=== PATIENT | male | born 1940 | race Caucasian/White ===

== ENCOUNTER 2016-08-22 10:55 | Emergency (ER) | payer MEDICARE, BC ==
--- NOTE | 2016-08-22 12:41 | US ---
EXAMINATION TYPE: US venous doppler duplex LE LT DATE OF EXAM: 08/22/2016 12:23 PM COMPARISON: NONE CLINICAL HISTORY: Pain. SIDE PERFORMED: Left TECHNIQUE: The lower extremity deep venous system is examined utilizing real time linear array sonog pat with graded compression, doppler sonography and color-flow sonography. VESSELS IMAGED: External Iliac Vein (EIV) Common Femoral Vein Deep Femoral Vein Greater Saphenous Vein * Femoral Vein Popliteal Vein Small Saphenous Vein * Proximal Calf Veins-not seen due to swelling (* superficial vessels) Patient of large body habitus with moderate swelling, somewhat technically difficult. Left Leg: Appears negative for DVT IMPRESSION: No evidence of DVT left lower extremity.
[2016-08-22 12:48] VITALS: BP 176/81; PULSE 90; RESP 16
--- NOTE | 2016-08-22 12:48 | ED ---
Extremity Problem HPI - General Chief complaint: Extremity Problem,Nontraumatic Stated complaint: Leg swelling Time Seen by Provider: 08/22/16 11:48 Source: patient, RN notes reviewed Mode of arrival: ambulatory Limitations: no limitations - History of Present Illness Initial comments: 75-year-old male presents emergency Department chief complaint left leg pain, swelling. Patient states she's had some discomfort last few days. Patient states is more swelling. Patient denies any chest pain or shortness breath. Patient has a history DVT. Patient denies any discoloration or any coolness to his foot. Patient states that he's had multiple surgeries on his leg including hip, knee and prior vascular surgery to his foot. Patient states this was performed by Dr. Leblanc. Patient denies any other complaints. No recent long distance traveling. - Related Data Home Medications Medication Instructions Recorded Confirmed Lisinopril-Hctz 20-25 mg 1 tab PO DAILY 10/08/13 08/22/16 [Zestoretic 20-25] Omeprazole [PriLOSEC] 20 tab PO BID 10/08/13 08/22/16 Naproxen [Naprosyn] 500 mg PO Q12HR 08/04/14 08/22/16 Ascorbic Acid [Vitamin C] 500 mg PO DAILY 08/05/14 08/22/16 Cholecalciferol [Vitamin D3] 400 unit PO DAILY 08/05/14 08/22/16 Fish Oil/Dha/Epa [Fish Oil 1,200 1 cap PO DAILY 08/05/14 08/22/16 mg Fish Oil] Multivitamin [Men's Multi-Vitamin] 1 tab PO DAILY 08/05/14 08/22/16 Atorvastatin [Lipitor] 40 mg PO HS 08/22/16 08/22/16 Cyanocobalamin [Vitamin B-12] 500 mcg PO DAILY 08/22/16 08/22/16 Allergies Allergy/AdvReac Type Severity Reaction Status Date / Time No Known Allergies Allergy Verified 08/22/16 11:36 Review of Systems ROS Statement: Those systems with pertinent positive or pertinent negative responses have been documented in the HPI. ROS Other: All systems not noted in ROS Statement are negative. Past Medical History Past Medical History: GERD/Reflux, Hypertension, Osteoarthritis (OA), Syncope Additional Past Medical History / Comment(s): glaucoma. He has a difficulty with his right hip. He has had evaluation versus [place] with an unclear etiology of the weakness that he suffers from at the right hip. It may be related to his prior right. total hip breath or plastic surgery though. History of Any Multi-Drug Resistant Organisms: None Reported Past Surgical History: Hernia Repair, Orthopedic Surgery Additional Past Surgical History / Comment(s): hayley knee replacement x4, rt hip replacement, left foot surgery-plantar wart, bilateral cataract, rt cardiac cath 08/10/14 Past Anesthesia/Blood Transfusion Reactions: No Reported Reaction Past Psychological History: No Psychological Hx Reported Additional Psychological History / Comment(s): Patient is and lives in the family home with his . Was a tobacco smoker only in his 20s. Denies a history of recreational drug use or significant alcohol use. He was in the , [employer], stationed in [place] after the conflict. No international travel since then. No animals in the home.. Smoking Status: Former smoker Past Alcohol Use History: None Reported Past Drug Use History: None Reported - Past Family History Mother Family Medical History: Cancer Additional Family Medical History / Comment(s): lung bowel and breast cancer General Exam Limitations: no limitations General appearance: alert, in no apparent distress Head exam: Present: atraumatic, normocephalic, normal inspection Neck exam: Present: normal inspection. Absent: tenderness, meningismus, lymphadenopathy Respiratory exam: Present: normal lung sounds bilaterally. Absent: respiratory distress, wheezes, rales, rhonchi, stridor Cardiovascular Exam: Present: regular rate, normal rhythm, normal heart sounds. Absent: systolic murmur, diastolic murmur, rubs, gallop, clicks Extremities exam: Present: other (Left leg there is some swelling noted mild calf tenderness. Pedal pulses equal bilaterally.) Skin exam: Present: warm, dry, intact, normal color. Absent: rash Course Vital Signs 08/22/16 08/22/16 10:58 12:32 Temperature 97.8 F Pulse Rate 107 H 90 Respiratory 18 16 Rate Blood Pressure 209/102 176/81 O2 Sat by Pulse 96 94 L Oximetry Medical Decision Making - Medical Decision Making 35-year-old male presented for left leg swelling and pain. There is no acute DVT. Patient we discharged advised to wear compression stockings. Elevate. Disposition Clinical Impression: Swelling of left lower extremity Disposition: HOME SELF-CARE Condition: Stable Instructions: Leg Edema (ED) Additional Instructions: Please return to the Emergency Department if symptoms worsen or any other concerns. Time of Disposition: 12:48
--- NOTE | 2016-08-22 13:11 | XR ---
EXAMINATION TYPE: XR chest 2V DATE OF EXAM: 08/22/2016 1:05 PM COMPARISON: July 31, 2010 HISTORY: Shortness of breath TECHNIQUE: Frontal and lateral views of the chest are obtained. FINDINGS: Scattered senescent parenchymal changes noted. Hyperinflation compatible with COPD. No evidence for infiltrate. No evidence for atelectasis. Heart size is stable. Mediastinal structures are stable and grossly unremarkable. No evidence for hilar prominence. Degenerative changes dorsal spine. IMPRESSION: 1. No evidence for acute pulmonary disease.
[2016-08-22 13:22] VITALS: TEMP 97
== END 2016-08-22 13:22 | disposition home or self-care (01) ==
LOC: EC 10:55
DX: M79.89 Other specified soft tissue disorders (principal); M79.605 Pain in left leg; K21.9 Gastro-esophageal reflux disease without esophagitis; I10 Essential (primary) hypertension; M19.90 Unspecified osteoarthritis, unspecified site; Z87.891 Personal history of nicotine dependence; Z79.1 Long term (current) use of non-steroidal anti-inflammatories (NSAID); Z79.899 Other long term (current) drug therapy
CPT/HCPCS: 71020; 99284

== ENCOUNTER → 2016-12-12 | Outpatient (CLI) | payer MEDICARE, BC | END | disposition home or self-care (01) | LOC: RADMRIMAIN 12:46 | PROVIDERS: ATTEND Physical Medicine & Rehabilitation | DX: Z53.9 Procedure and treatment not carried out, unspecified reason (principal) ==

== ENCOUNTER 2017-10-15 09:51 | Day surgery (SDC) | payer MEDICARE, BC ==
[2017-10-09 08:17] VITALS: BMI 39.5
[~2017-10-15 09:51] MED LIST: ALPRAZolam 0.25 MG TAB PO PRN; ALPRAZolam 0.5 MG TAB PO PRN; ASPIRIN 325 MG TAB PO STA; ATORVASTATIN 80 MG TAB PO STA; NITROGLYCERIN SL TABS 0.4 MG TAB SUBLINGUAL PRN; SODIUM CHLORIDE 0.9% 1,000 ML in EMPTY BAG 1 BAG IV ONE
[2017-10-15] MEDS ORDERED: fentaNYL (PF) 50 MCG/ML 2 ML AMP ONE (10:37)
[2017-10-15] MEDS ORDERED: MIDAZOLAM 2 MG/2 ML VIAL ONE (10:37)
[2017-10-15] MEDS ORDERED: MIDAZOLAM 2 MG/2 ML VIAL IV ONE (10:48)
[2017-10-15] MEDS ORDERED: fentaNYL (PF) 50 MCG/ML 2 ML AMP IV ONE (10:48)
[2017-10-15] MEDS ORDERED: LIDOCAINE 2% SYG (PF) 100 MG/5 ML MISCELLANE ONE ×2 (10:52→11:02)
[2017-10-15] MEDS ORDERED: SODIUM CHLORIDE 0.9% 1,000 ML IV ONE (10:53)
[2017-10-15 11:16] LABS: O2 Sat Blood Gas 65.3 %
[2017-10-15 11:23] LABS: O2 Sat Blood Gas 91.8 %
[2017-10-15] MEDS ORDERED: RX INFO: IV CONTRAST WAS GIVEN 1 EACH MISC MISCELLANE PRN (11:40)
[2017-10-15] MEDS ORDERED: SODIUM CHLORIDE 0.9% 1,000 ML IV SCH (11:45)
--- NOTE | 2017-10-15 11:49 | P.PCN ---
Date of Procedure: 10/15/17 Preoperative Diagnosis: Shortness of breath, hypertension and hypercholesterolemia Postoperative Diagnosis: Calcified coronary arteries without any significant obstructive disease. Normal LV function. Mildly elevated end-diastolic pressures size to of diastolic dysfunction Description of Procedure: HISTORY: This is a 76-year-old gentleman with history of hypertension and hypercholesteremia who has been experiencing exertional shortness of breath. His a stress test in the past showed normal perfusion. He was seen by marshmallow maker recently and felt that the symptoms of shortness of breath are not related to pulmonary issues and he was advised to have a cardiac catheterization. Patient fully understood the risks and benefits of the procedure. CONSENT:I have discussed the risks, benefits and alternative therapies for the above-mentioned procedure and for both sedation/analgesia as well as necessary blood product administration, if indicated, as they pertain to this patient. The patient has indicated understanding and acceptance of the risks and procedures discussed. PROCEDURE: Patient was brought to the lab in a fasting state. Patient was given IV sedation. Left heart catheterization: The right groin is infiltrated with lidocaine and right femoral artery was entered using Seldinger technique. A 6-Taiwanese catheter was left in place and selective coronary arteriography and left ventriculography was performed. Patient tolerated the procedure well. Femoral angiogram was performed and Manual compression was applied for hemostasis. Right heart catheterization: This is performed from the right femoral vein. The femoral vein was entered using Seldinger technique and a 8-Taiwanese sheath was left in place. A balloon-tip [place] catheter was used for right heart catheterization. Patient tolerated the procedure well. Manual compression was applied for hemostasi No immediate complications were noted and patient was transferred to [facility] in a stable condition Conscious Sedation: Versed 1mg Fentanyl 50g Duration 40minutes HEMODYNAMICS: Left heart catheterization: The aortic pressure is about 130/70. Left ankle end-diastolic pressure is about 12-16. There was no gradient across the aortic valve. Right heart catheterization: Right atrial pressure was about 6-7. Right ventricular pressure is about 35-40/8-12. Pulmonary artery pressure is about 40/12-16. The cardiac output by thermodilution method is 5.37 and by Beny method is 6.18. The oxygen saturation. The right atrium is 67. Pulmonary artery saturation 65 and femoral artery saturation is 91.8. SELECTIVE CORONARY ARTERIOGRAPHY: LEFT MAIN: Normal length mild ostial tapering THE LEFT ANTERIOR DESCENDING CORONARY ARTERY: . This is a good caliber vessel giving rise to good-sized first diagonal branch. There is calcification noted in the LAD without any significant focal occlusive disease. THE LEFT CIRCUMFLEX AND IS CORONARY ARTERY: This is a moderate caliber vessel giving rise to good-sized OM branch. The circumflex coronary artery and branches are free of occlusive disease. THE RIGHT CORONARY ARTERY:This is a dominant vessel giving rise to good-sized PDA and PLV. The right coronary artery and branches are free of occlusive disease LEFT VENTRICULOGRAPHY:This was performed 30 right anterior oblique projection. This revealed normal-sized cardiac silhouette with good systolic function FINAL IMPRESSION: Calcified aorta and coronary vessels without any obstructive coronary artery disease of significance. Mildly elevated end-diastolic pressures with preserved LV function. PLAN: Maximum medical therapy and this factor modification PROGNOSIS: Fair
[2017-10-15 14:22] VITALS: RESP 16
[2017-10-15 20:04] VITALS: BP 142/66; PULSE 74; TEMP 97.8
== END 2017-10-15 21:00 | disposition home or self-care (01) ==
LOC: CATHCVL 09:51 → 3OBS 11:36 → CATHCVL 21:00
PROVIDERS: ATTEND Internal Medicine Cardiovascular Disease
DX: I25.10 Atherosclerotic heart disease of native coronary artery without angina pectoris (principal); I10 Essential (primary) hypertension; E78.00 Pure hypercholesterolemia, unspecified; I70.0 Atherosclerosis of aorta; I77.89 Other specified disorders of arteries and arterioles; Z79.1 Long term (current) use of non-steroidal anti-inflammatories (NSAID); Z79.82 Long term (current) use of aspirin; Z79.899 Other long term (current) drug therapy; Z87.891 Personal history of nicotine dependence
CPT/HCPCS: 93460; 85018; 82810; C1894 ×2; C1769; J2250; J2001; J3010

== ENCOUNTER 2018-11-21 14:38 | Emergency (ER) | payer MEDICARE, BC ==
[2018-11-21 14:43] VITALS: TEMP 97.8
[2018-11-21] MEDS ORDERED: KETOROLAC 30 MG/ML 1 ML VIAL IM STA (15:20)
--- NOTE | 2018-11-21 15:47 | XR ---
EXAMINATION TYPE: XR hand complete RT DATE OF EXAM: 11/21/2018 CLINICAL HISTORY: Pain after fall injury today. TECHNIQUE: Frontal, lateral and oblique images of the right hand are obtained. COMPARISON: None. FINDINGS: Demineralization is present. There is no acute fracture/dislocation evident in the right jeff nd. Advanced degenerative changes throughout the right hand are present including involvement in the fingers most prominent at the second and third MCP joints. Advanced degenerative change base of first metacarpal with bony formation is present along with advanced narrowing and spurring at first metaca rpal phalangeal joint. Mild diffuse subcutaneous edema is present. IMPRESSION: There is no acute fracture or dislocation in the right hand.
--- NOTE | 2018-11-21 15:49 | XR ---
EXAMINATION TYPE: XR chest 2V DATE OF EXAM: 11/21/2018 COMPARISON: 08/22/2016 HISTORY: Cough and chest pain TECHNIQUE: Frontal and lateral views of the chest are obtained. FINDINGS: There is no focal air space opacity, pleural effusion, or pneumothorax seen. Chronic mild interstitial prominence. The cardiac silhouette size is enlarged as noted on the prior. The osseou s structures are intact. There is a partial intrathoracic stomach seen. Minimal degenerative changes of the spine are noted. IMPRESSION: No acute cardiopulmonary process. Partial intrathoracic stomach and redemonstration of a n enlarged cardiomediastinal silhouette.
--- NOTE | 2018-11-21 16:06 | ED ---
Fall HPI - General Chief Complaint: Fall Stated Complaint: Fall, side pain Time Seen by Provider: 11/21/18 15:13 Source: patient, family Mode of arrival: ambulatory - History of Present Illness Initial Comments: Patient is a 78-year-old male presents emergency Department after fall. Patient reports he was mowing the lawn when he tripped and fell on the right side of his body 2 hours ago. Patient reports pain along the thoracic mid axillary line that is exacerbated on full inspiration. Patient reports an abrasion in the same region. Patient denies any head trauma. Patient reports the pain is alleviated at rest. Patient reports pain in his right second and third MCP joints. Patient reports mild erythema and swelling in the region as well. Patient is not on blood thinners. Patient denies chest pain, chest tightness, shortness of breath, headache,, dizziness, lightheadedness, blurry vision, gait instability, nausea vomiting. - Related Data Home Medications Medication Instructions Recorded Confirmed Omeprazole [PriLOSEC] 20 tab PO BID 10/08/13 10/09/17 Ascorbic Acid [Vitamin C] 500 mg PO DAILY 08/05/14 10/09/17 Cholecalciferol [Vitamin D3] 400 unit PO DAILY 08/05/14 10/09/17 Multivitamin [Men's Multi-Vitamin] 1 tab PO DAILY 08/05/14 10/09/17 Atorvastatin [Lipitor] 40 mg PO HS 08/22/16 10/09/17 Cyanocobalamin [Vitamin B-12] 500 mcg PO DAILY 08/22/16 10/09/17 Aspirin 325 mg PO DAILY 10/09/17 10/09/17 Atenolol/Chlorthalidone 1 each PO DAILY 10/09/17 10/09/17 [Atenolol-Chlorthalidone 50-25] traMADol HCL [Ultram] 100 mg PO DAILY PRN 10/09/17 10/09/17 Allergies Allergy/AdvReac Type Severity Reaction Status Date / Time No Known Allergies Allergy Verified 11/21/18 14:40 Review of Systems ROS Statement: Those systems with pertinent positive or pertinent negative responses have been documented in the HPI. ROS Other: All systems not noted in ROS Statement are negative. Past Medical History Past Medical History: Cancer, GERD/Reflux, Hyperlipidemia, Osteoarthritis (OA), Prostate Disorder, Sleep Apnea/CPAP/BIPAP, Syncope Additional Past Medical History / Comment(s): see Dr Burns H&P, "episode 3 yrs ago passed out and vitals bottomed out", no cpap used, skin cancer on face, occ swelling of lower legs History of Any Multi-Drug Resistant Organisms: None Reported Past Surgical History: Heart Catheterization, Hernia Repair, Joint Replacement, Orthopedic Surgery Additional Past Surgical History / Comment(s): 4 hayley knee replacement-2 each knee, rt hip replacement, left foot surgery-plantar wart, bilateral cataract, left foot surgery for infection, stent left carotid artery Past Anesthesia/Blood Transfusion Reactions: No Reported Reaction Past Psychological History: No Psychological Hx Reported Smoking Status: Former smoker Past Alcohol Use History: None Reported Past Drug Use History: None Reported - Past Family History Mother Family Medical History: Cancer Additional Family Medical History / Comment(s): lung, bowel cancer General Exam - General Exam Comments Initial Comments: General: Well-developed well-nourished distress HEENT: Normocephalic/atraumatic, PERLL, pharynx erythema, swallowing well, EAC no erythema, no exudates, TM clear, no cervical lymph nodes Neck: Supple, nontender, trachea midline Chest/Lungs: Normal respirations, no signs of respiratory distress clear to auscultation bilaterally no wheezes, rales, rhonchi Cardiac: Regular rate and rhythm, normal S1-S2, no murmurs rubs or gallops Abdomen/GI: Soft nontender, bowel sounds equal or quadrant x4, no guarding, no rebound no CVA tenderness Musculoskeletal: Tenderness along the right thoracic midaxillary line, abrasion measuring approximately 4 cm in the same region, no vertebral paravertebral tenderness, small abrasion near the right trapezius, +2 dorsalis pedis and posterior tibialis bilaterally, +2 ulnar and radial pulses Skin: Warmth, no rashes or lesions, no cyanosis or diaphoresis Neurologic: AAO x 3, CN 2-12 intact, Psychiatric: Mood and affect normal, judgment normal Limitations: no limitations Course Vital Signs 11/21/18 14:40 Temperature 97.8 F Pulse Rate 77 Respiratory 16 Rate Blood Pressure 157/82 O2 Sat by Pulse 92 L Oximetry Medical Decision Making - Medical Decision Making Patient is 78-year-old male presenting to emergency Department after fall. Chest x-ray is negative for a pneumothorax but is positive for an enlarge cardiac silhouette. Patient has a chronic low oxygen saturation. X-ray of the right hand is negative for acute fracture or dislocation. This when I suspect the patient to have suffered a contusion to his chest wall and sprain of his right second and third MCP joints. Patient advised to apply cold compress and region of tenderness to minimize swelling. Patient vised to follow-up with primary care. Patient advised to alternate between Tylenol and ibuprofen for pain control. Strict return parameters were thoroughly discussed with patient was understanding and agreeable. Case discussed with physician. Disposition Clinical Impression: Fall Disposition: HOME SELF-CARE Condition: Stable Instructions (If sedation given, give patient instructions): Fall Prevention for Older Adults (ED) Additional Instructions: Please follow with primary care. Please apply cold compress an region and swelling to minimize pain. Please return to emergency department if symptoms worsen. Is patient prescribed a controlled substance at d/c from ED?: No Referrals: [facility],Clinic [Primary Care Provider] - 1-2 days Time of Disposition: 16:34
[2018-11-21 16:59] VITALS: BP 128/65; PULSE 65; RESP 18
== END 2018-11-21 16:58 | disposition home or self-care (01) ==
LOC: EC 14:38
DX: S20.411A Abrasion of right back wall of thorax, initial encounter (principal); S10.91XA Abrasion of unspecified part of neck, initial encounter; K21.9 Gastro-esophageal reflux disease without esophagitis; E78.5 Hyperlipidemia, unspecified; M19.90 Unspecified osteoarthritis, unspecified site; Z85.828 Personal history of other malignant neoplasm of skin; Z87.891 Personal history of nicotine dependence; Z79.82 Long term (current) use of aspirin; Z79.899 Other long term (current) drug therapy; Z96.653 Presence of artificial knee joint, bilateral; Z96.643 Presence of artificial hip joint, bilateral; Z95.818 Presence of other cardiac implants and grafts; W01.0XXA Fall on same level from slipping, tripping and stumbling without subsequent striking against object, initial encounter
CPT/HCPCS: 73130; 71046; 99283; 96372; J1885

== ENCOUNTER 2020-08-15 21:37 | Inpatient (IN) | payer MEDICARE, BC ==
[2020-08-15] MEDS ORDERED: methylPREDNISolone SOD SUCCI 125 MG/2 ML VIAL IV STA (21:57)
[2020-08-15 22:26] LABS: Basophils # (A) 0.1 k/uL (0-0.2); Basophils % (A) 1 %; Eosinophils % (A) 0 %; HGB 17.3 gm/dL (13.0-17.5); Lymphocytes # (A) 0.5 k/uL (1.0-4.8); Lymphocytes % (A) 4 %; MCH 31.7 pg (25.0-35.0); MCHC 34.7 g/dL (31.0-37.0); MCV 91.4 fL (80.0-100.0); Mean Platelet Volume 7.6; Monocytes # (A) 0.5 k/uL (0-1.0); Monocytes % (A) 4 %; Neutrophils % (A) 91 %; Platelet Count 170 k/uL (150-450); RBC 5.47 m/uL (4.30-5.90); RDW 12.6 % (11.5-15.5); WBC 12.1 k/uL (3.8-10.6)
--- NOTE | 2020-08-15 22:28 | XR ---
EXAMINATION TYPE: XR chest 1V portable DATE OF EXAM: 08/15/2020 COMPARISON: 11/21/2018 HISTORY: Short of breath. TECHNIQUE: Single view FINDINGS: There is pulmonary interstitial and airspace edema. Heart is enlarged. I see no definite pl eural effusion. There are chest leads. IMPRESSION: Pulmonary edema that could relate to developing RDS or heart failure. This appears new co mpared to old exam. Hiatal hernia noted.
[2020-08-15] MEDS ORDERED: DILTIAZEM DRIP BOLUS FROM BAG 1 MG SOLN IV ONE (22:39)
[2020-08-15 22:41] LABS: Partial Thromboplastin Time 23.9 sec (22.0-30.0); Prothrombin Time 10.3 sec (9.0-12.0)
[2020-08-15 22:43] LABS: ALT 27 U/L (4-49); AST 87 U/L (17-59); African American GFR (CKD) >90 (>60 ml/min/1.73 sqM); Albumin 2.2 g/dL (3.5-5.0); Alkaline Phosphatase 73 U/L (38-126); Anion Gap 7 mmol/L; Blood Urea Nitrogen 13 mg/dL (9-20); Carbon Dioxide 19 mmol/L (22-30); Chloride 107 mmol/L (98-107); Glucose 145 mg/dL (74-99); LDH 1458 U/L (313-618); Magnesium 1.4 mg/dL (1.6-2.3); Non-African American GFR(CKD) >90 (>60 ml/min/1.73 sqM); Potassium 3.3 mmol/L (3.5-5.1); Sodium 133 mmol/L (137-145); Total Bilirubin 0.7 mg/dL (0.2-1.3); Total Protein 4.6 g/dL (6.3-8.2)
[2020-08-15 22:52] LABS: D-Dimer 2.35 mg/L FEU (<0.60)
[2020-08-15 22:53] LABS: C Reactive Protein 17.7 mg/dL (<1.0)
--- NOTE | 2020-08-15 23:14 | ED ---
General Adult HPI - General Chief complaint: Shortness of Breath Stated complaint: Covid+ SOB Source: patient Mode of arrival: ambulatory Limitations: no limitations - History of Present Illness Initial comments: 79-year-old male with past medical history of hypertension, sleep apnea presents emergency Department with reported shortness of breath. States that he has had symptoms for the past 5 days. Patient was tested positive for Covid on the . Reports that he has become more short of breath. Today he did use his friend's nebulizer. He had no improvement in his symptoms. Denies a fevers or chills. No previous history of cardiac disease. Denies chest pain. No lower trauma swelling. Does admit to a diffuse rash on his thighs and abdomen. Denies any additional new medications or exposures outside of the breathing treatment. Denies history of underlying lung conditions. No sick contacts with similar symptoms. No history of irregular heart rhythms. No other alleviating, precipitating or modifying factors - Related Data Home Medications Medication Instructions Recorded Confirmed Omeprazole [PriLOSEC] 20 tab PO BID 10/08/13 08/15/20 Ascorbic Acid [Vitamin C] 500 mg PO DAILY 08/05/14 08/15/20 Cholecalciferol [Vitamin D3 (10 400 unit PO DAILY 08/05/14 08/15/20 Mcg = 400 Iu)] Multivitamin [Men's Multi-Vitamin] 1 tab PO DAILY 08/05/14 08/15/20 Atorvastatin [Lipitor] 40 mg PO HS 08/22/16 08/15/20 Cyanocobalamin [Vitamin B-12] 500 mcg PO DAILY 08/22/16 08/15/20 Aspirin EC [Ecotrin Low Dose] 81 mg PO DAILY 08/15/20 08/15/20 Atenolol [Tenormin] 100 mg PO DAILY 08/15/20 08/15/20 Dorzolamide-Timol 2.23%/0.68% 1 drop BOTH EYES BID 08/15/20 08/15/20 [Cosopt] Naproxen 500 mg PO DAILY PRN 08/15/20 08/15/20 [place]-3 Fatty Acids/Fish Oil [Fish 1 cap PO DAILY 08/15/20 08/15/20 Oil 1,000 mg Softgel] Vitamin E 400 unit PO DAILY 08/15/20 08/15/20 Zinc 50 mg PO DAILY 08/15/20 08/15/20 Allergies Allergy/AdvReac Type Severity Reaction Status Date / Time No Known Allergies Allergy Verified 08/15/20 23:17 Review of Systems ROS Statement: Those systems with pertinent positive or pertinent negative responses have been documented in the HPI. ROS Other: All systems not noted in ROS Statement are negative. Past Medical History Past Medical History: Cancer, GERD/Reflux, Hyperlipidemia, Osteoarthritis (OA), Prostate Disorder, Sleep Apnea/CPAP/BIPAP, Syncope Additional Past Medical History / Comment(s): see Dr Burns H&P, "episode 3 yrs ago passed out and vitals bottomed out", no cpap used, skin cancer on face, occ swelling of lower legs History of Any Multi-Drug Resistant Organisms: None Reported Past Surgical History: Heart Catheterization, Hernia Repair, Joint Replacement, Orthopedic Surgery Additional Past Surgical History / Comment(s): 4 hayley knee replacement-2 each knee, rt hip replacement, left foot surgery-plantar wart, bilateral cataract, left foot surgery for infection, stent left carotid artery Past Anesthesia/Blood Transfusion Reactions: No Reported Reaction Past Psychological History: No Psychological Hx Reported Smoking Status: Former smoker Past Alcohol Use History: None Reported Past Drug Use History: None Reported - Past Family History Mother Family Medical History: Cancer Additional Family Medical History / Comment(s): lung, bowel cancer General Exam Limitations: no limitations Course Vital Signs 08/15/20 08/15/20 08/15/20 21:39 21:42 22:11 Temperature 97.9 F Pulse Rate 138 H 179 H Respiratory 25 H 18 42 H Rate Blood Pressure 114/79 130/91 O2 Sat by Pulse 74 L 95 Oximetry 08/15/20 08/15/20 08/16/20 22:53 23:28 00:03 Temperature Pulse Rate 172 H 172 H 137 H Respiratory 18 18 24 Rate Blood Pressure 106/87 125/85 128/69 O2 Sat by Pulse 96 96 94 L Oximetry EKG Findings - EKG Comments: EKG Findings:: EKG at 0 demonstrates A. fib with a rate of 169. QRS 80. QTC of 479. T-wave was inverted T-wave in lead 3. No acute ST segment elevations. EKG repeated at 2234 demonstrates ventricular rate of 151. QRS 86. QTC of 437. A. fib rhythm without acute ST segment elevations Medical Decision Making - Medical Decision Making Upon arrival patient is probably placed in trauma bay 1. He does have a heart rate of 180. Pulse ox 74%. Due to his significant work of breathing he is placed on BiPAP. 12-lead EKG is performed which demonstrates concern for A. fib. Laboratory studies were conducted. D-dimer 2.3. Lactic acid 6.3. Calcium 6.2. Patient started on gentle fluid hydration. LDH is 1458. Troponin 0.051. Patient is sent over for a CT of his chest which fails to demonstrate PE. Chest x-ray demonstrates diffuse pulmonary infiltrates. Magnesium is replaced. Patient started on a Cardizem drip with improvement in his heart rate. Spoke with the patient and recommended admission. Discussed the case wit h Dr. Khalil who agreed to admit the patient. I will consult cardiology and pulmonology. Patient is started on a heparin drip as he has no contraindications. Patient remained in stable condition awaiting a bed on the floor - Lab Data Result diagrams: 08/15/20 22:16 08/15/20 22:16 Lab Results 08/15/20 08/15/20 08/15/20 Range/Units 22:16 22:16 22:16 WBC 12.1 H (3.8-10.6) k/uL RBC 5.47 (4.30-5.90) m/uL Hgb 17.3 (13.0-17.5) gm/dL Hct 50.0 (39.0-53.0) % MCV 91.4 (80.0-100.0) fL MCH 31.7 (25.0-35.0) pg MCHC 34.7 (31.0-37.0) g/dL RDW 12.6 (11.5-15.5) % Plt Count 170 (150-450) k/uL MPV 7.6 Neutrophils % 91 % Lymphocytes % 4 % Monocytes % 4 % Eosinophils % 0 % Basophils % 1 % Neutrophils # 11.0 H (1.3-7.7) k/uL Lymphocytes # 0.5 L (1.0-4.8) k/uL Monocytes # 0.5 (0-1.0) k/uL Eosinophils # 0.0 (0-0.7) k/uL Basophils # 0.1 (0-0.2) k/uL PT 10.3 (9.0-12.0) sec INR 1.0 (<1.2) APTT 23.9 (22.0-30.0) sec D-Dimer 2.35 H (<0.60) mg/L FEU Sodium 133 L (137-145) mmol/L Potassium 3.3 L (3.5-5.1) mmol/L Chloride 107 (98-107) mmol/L Carbon Dioxide 19 L (22-30) mmol/L Anion Gap 7 mmol/L BUN 13 (9-20) mg/dL Creatinine 0.68 (0.66-1.25) mg/dL Est GFR (CKD-EPI)AfAm >90 (>60 ml/min/1.73 sqM) Est GFR (CKD-EPI)NonAf >90 (>60 ml/min/1.73 sqM) Glucose 145 H (74-99) mg/dL Lactic Ac Sepsis Rflx Plasma Lactic Acid Darwin (0.7-2.0) mmol/L Calcium 6.2 L* (8.4-10.2) mg/dL Magnesium 1.4 L (1.6-2.3) mg/dL Total Bilirubin 0.7 (0.2-1.3) mg/dL AST 87 H (17-59) U/L ALT 27 (4-49) U/L Alkaline Phosphatase 73 (38-126) U/L Lactate Dehydrogenase 1458 H (313-618) U/L Troponin I (0.000-0.034) ng/mL C-Reactive Protein 17.7 H (<1.0) mg/dL NT-Pro-B Natriuret Pep pg/mL Total Protein 4.6 L (6.3-8.2) g/dL Albumin 2.2 L (3.5-5.0) g/dL 08/15/20 08/15/20 08/15/20 Range/Units 22:16 22:16 22:16 WBC (3.8-10.6) k/uL RBC (4.30-5.90) m/uL Hgb (13.0-17.5) gm/dL Hct (39.0-53.0) % MCV (80.0-100.0) fL MCH (25.0-35.0) pg MCHC (31.0-37.0) g/dL RDW (11.5-15.5) % Plt Count (150-450) k/uL MPV Neutrophils % % Lymphocytes % % Monocytes % % Eosinophils % % Basophils % % Neutrophils # (1.3-7.7) k/uL Lymphocytes # (1.0-4.8) k/uL Monocytes # (0-1.0) k/uL Eosinophils # (0-0.7) k/uL Basophils # (0-0.2) k/uL PT (9.0-12.0) sec INR (<1.2) APTT (22.0-30.0) sec D-Dimer (<0.60) mg/L FEU Sodium (137-145) mmol/L Potassium (3.5-5.1) mmol/L Chloride (98-107) mmol/L Carbon Dioxide (22-30) mmol/L Anion Gap mmol/L BUN (9-20) mg/dL Creatinine (0.66-1.25) mg/dL Est GFR (CKD-EPI)AfAm (>60 ml/min/1.73 sqM) Est GFR (CKD-EPI)NonAf (>60 ml/min/1.73 sqM) Glucose (74-99) mg/dL Lactic Ac Sepsis Rflx Plasma Lactic Acid Darwin 6.3 H* (0.7-2.0) mmol/L Calcium (8.4-10.2) mg/dL Magnesium (1.6-2.3) mg/dL Total Bilirubin (0.2-1.3) mg/dL AST (17-59) U/L ALT (4-49) U/L Alkaline Phosphatase (38-126) U/L Lactate Dehydrogenase (313-618) U/L Troponin I 0.051 H* (0.000-0.034) ng/mL C-Reactive Protein (<1.0) mg/dL NT-Pro-B Natriuret Pep 853 pg/mL Total Protein (6.3-8.2) g/dL Albumin (3.5-5.0) g/dL 08/15/20 Range/Units 22:41 WBC (3.8-10.6) k/uL RBC (4.30-5.90) m/uL Hgb (13.0-17.5) gm/dL Hct (39.0-53.0) % MCV (80.0-100.0) fL MCH (25.0-35.0) pg MCHC (31.0-37.0) g/dL RDW (11.5-15.5) % Plt Count (150-450) k/uL MPV Neutrophils % % Lymphocytes % % Monocytes % % Eosinophils % % Basophils % % Neutrophils # (1.3-7.7) k/uL Lymphocytes # (1.0-4.8) k/uL Monocytes # (0-1.0) k/uL Eosinophils # (0-0.7) k/uL Basophils # (0-0.2) k/uL PT (9.0-12.0) sec INR (<1.2) APTT (22.0-30.0) sec D-Dimer (<0.60) mg/L FEU Sodium (137-145) mmol/L Potassium (3.5-5.1) mmol/L Chloride (98-107) mmol/L Carbon Dioxide (22-30) mmol/L Anion Gap mmol/L BUN (9-20) mg/dL Creatinine (0.66-1.25) mg/dL Est GFR (CKD-EPI)AfAm (>60 ml/min/1.73 sqM) Est GFR (CKD-EPI)NonAf (>60 ml/min/1.73 sqM) Glucose (74-99) mg/dL Lactic Ac Sepsis Rflx Y Plasma Lactic Acid Darwin (0.7-2.0) mmol/L Calcium (8.4-10.2) mg/dL Magnesium (1.6-2.3) mg/dL Total Bilirubin (0.2-1.3) mg/dL AST (17-59) U/L ALT (4-49) U/L Alkaline Phosphatase (38-126) U/L Lactate Dehydrogenase (313-618) U/L Troponin I (0.000-0.034) ng/mL C-Reactive Protein (<1.0) mg/dL NT-Pro-B Natriuret Pep pg/mL Total Protein (6.3-8.2) g/dL Albumin (3.5-5.0) g/dL Disposition Clinical Impression: COVID-19, Hypoxia, BiPAP (biphasic positive airway pressure) dependence, Lactic acid acidosis, New onset a-fib Disposition: ADMITTED IP TO THIS HOSP Condition: Serious Is patient prescribed a controlled substance at d/c from ED?: No Decision to Admit Reason: Admit from EC Decision Date: 08/15/20 Decision Time: 23:58
[2020-08-15 23:20] LABS: Calcium 6.2 mg/dL (8.4-10.2)
[2020-08-15] MEDS: DILTIAZEM 125 MG in SODIUM CHLORIDE 0.9% 100 ML IV SCH (23:20)
[2020-08-15] MEDS: SODIUM CHLORIDE 0.9% 1,000 ML IV SCH (23:21)
--- NOTE | 2020-08-15 23:55 | CT ---
EXAMINATION TYPE: CT chest angio for PE DATE OF EXAM: 08/15/2020 COMPARISON: None HISTORY: SOB CT DLP: 620.2 mGycm Automated exposure control for dose reduction was used. CONTRAST: Performed with IV Contrast, patient injected with 90 mL of Isovue 370. Images obtained from the thoracic inlet to the diaphragm with IV contrast. There are 3-D post process ed images. There is extensive pulmonary interstitial and airspace infiltrate. There is consolidation in the post erior lung king. There is moderate hiatal hernia. Heart is slightly enlarged. There is no pericardi al effusion. There is no aortic aneurysm or dissection. I see no filling defect in the pulmonary moni jose. There is no definite mediastinal adenopathy. There are few mediastinal lymph nodes measuring le ss than 1 cm. There are no hilar masses. There is some spurring in the thoracic spine. There is no compression fracture. Sternum is intact. Th e upper abdominal soft tissues are intact. IMPRESSION: No evidence of pulmonary embolism. Extensive pulmonary infiltrates consistent with pneumonia or RDS. No pleural fluid seen to suggest he art failure.
[2020-08-15] MEDS ORDERED: ACETAMINOPHEN TAB 325 MG TAB PO PRN (23:58)
[2020-08-15] MEDS ORDERED: NALOXONE 0.4 MG/ML 1 ML VIAL IV PRN (23:58)
[2020-08-16] MEDS ORDERED: HEPARIN SODIUM 1,000 UN/ML (10ML VL) IV ONE (00:13)
[2020-08-16] MEDS ORDERED: HEPARIN SODIUM 1,000 UN/ML (10ML VL) IV PRN (00:13)
[2020-08-16] MEDS ORDERED: HEPARIN SOD,PORK IN 0.45% NACL 25,000 UNIT in 0.45% NACL 1 250ML.BAG IV SCH (00:15)
[2020-08-16] MEDS: MAGNESIUM SULFATE-D5W PMX 1 GM in DEXTROSE/WATER 1 100ML.BAG IVPB SCH ×2 (00:49→01:50)
[2020-08-16] MEDS: SODIUM CHLORIDE 0.9% 1,000 ML IV SCH ×2 (07:44→15:41)
[2020-08-16] MEDS: MULTIVITAMINS, THERA 1 EACH TAB PO SCH (08:25)
[2020-08-16] MEDS: ZINC SULFATE 220 MG CAP PO SCH (08:26)
[2020-08-16] MEDS: CHOLECALCIFEROL 10 MCG (400 IU) TABLET PO SCH (08:26)
[2020-08-16] MEDS: PANTOPRAZOLE 40 MG TABLET PO SCH ×2 (08:26→20:18)
[2020-08-16] MEDS: VITAMIN E (DL,TOCOPHERYL ACET) 400 UNIT CAP PO SCH (08:26)
[2020-08-16] MEDS: ASCORBIC ACID 500 MG TAB PO SCH (08:26)
[2020-08-16] MEDS: CYANOCOBALAMIN 500 MCG TAB PO SCH (08:26)
[2020-08-16] MEDS: DEXAMETHASONE SOD PHOSPHATE 10 MG/ML 1 ML VIAL IV SCH (08:26)
[2020-08-16] MEDS ORDERED: NON FORMULARY DRUG (Omega-3 Fatty Acids/Fish Oil [Fish Oil 1,000 Mg Softgel] 1 EACH Capsul PO SCH (09:00)
[2020-08-16] MEDS ORDERED: LORazepam 2 MG/ML INJ IV PRN (10:26)
[2020-08-16] MEDS: DILTIAZEM 125 MG in SODIUM CHLORIDE 0.9% 100 ML IV SCH (11:00)
--- NOTE | 2020-08-16 11:00 | ECHOF ---
Referral Reason:LV function, afib MEASUREMENTS -------- HEIGHT: 170.2 cm WEIGHT: 115.7 kg BP: IVSd: 1.1 cm (0.6 - 1.1) LVIDd: 3.3 cm (3.9 - 5.3) LVPWd: 1.4 cm (0.6 - 1.1) IVSs: 1.9 cm LVIDs: 1.7 cm LVPWs: 1.6 cm Ao Diam: 3.2 cm (2.0 - 3.7) AV Cusp: 1.8 cm (1.5 - 2.6) LA Diam: 2.7 cm (2.7 - 3.8) MV EXCURSION: 17.354 mm (> 18.000) MV EF SLOPE: 90 mm/s (70 - 150) EPSS: 0.7 cm RAP: 5.00 mmHg RVSP: 13.66 mmHg FINDINGS -------- Atrial fibrillation. This was a technically difficult study with suboptimal views. The left ventricular size is normal. There is mild concentric left ventricular hypertrophy. Overa ll left ventricular systolic function is normal with, an EF between 55 - 60 %. , and the LA measures 2.7cm. The right atrium was not well visualized. Lumason used The aortic valve was not well visualized. There is trace mitral regurgitation. Mild tricuspid regurgitation present. Right ventricular systolic pressure is normal at < 35 mmHg. The pulmonic valve was not well visualized. The aortic root size is normal. IVC Not well visulized. There is no pericardial effusion. CONCLUSIONS -------- 1. The left ventricular size is normal. 2. There is mild concentric left ventricular hypertrophy. 3. Overall left ventricular systolic function is normal with, an EF between 55 - 60 %. 4. There is trace mitral regurgitation. 5. Mild tricuspid regurgitation present. 6. There is no pericardial effusion. MANAGER [employer]: Ida Wallace, JULIO
--- NOTE | 2020-08-16 11:37 | P.CRDCN ---
History of Present Illness History of present illness: HISTORY OF PRESENTING ILLNESS This is a pleasant 79-year-old male past medical history significant for hypertension, dyslipidemia, non-obstructive CAD, bilateral carotid artery disease. He follows in the office with Dr. Burns. We have been asked to see in consultation for new onset atrial fibrillation . Patient presents to the emergency department with worsening shortness of breath. Was tested positive for Covid-19 on August 13, and since then has become more short of breath and his family brought him to the emergency department. Patient was found to be in atrial fibrillation with rapid ventricular response HR 130-170s, Hypoxic SpO2 74% on room air. Patient started on BiPAP, 10mg IV Cardizem bolus, IV Cardizem drip is at 10mg/hr and Heparin drip was initiated. Patient denies chest pain, palpitations, lower extremity edema, fatigue, weakness, lightheadedness, syncope. Patient denies history of Diabetes, Stroke, [place]. Patients current home cardiac medication include atorvastatin 40mg nightly, aspirin 81mg daily, atenolol 100mg daily (which he states was just increased by his physician at the [place]). He was on lisinopril 20mg-HCTZ 25mg BID a few months ago but this was di scontinued by PCP. He states he is compliant with his medication. He is a former smoker, quit 40+ years ago started smoking at age 18 1.5PPD, denies alcohol use. Laboratory data reviewed, Troponin trend 0.05-->0.10-->0.09, WBC 12.1, Hgb 17.3, platelets 170, d-dimer 2.5, sodium 133, potassium 3.3, serum creatinine 0.68, by mouth nightly 13, magnesium 1.4, LDH elevated, CRP elevated. Vital signs blood pressure 132/74, heart rate 101, tachypneic RR 25-30, 91% on BiPAP, afebrile. DIAGNOSTICS Most recent echocardiogram- 06/16/2020- Office revealed EF 55%, mildy dilated LA, mild AR, mild MR, mild TR, moderate pulmonic regurgitation. EKG reveals atrial fibrillation with rapid ventricular response HR 151 Prior EKG in 2014 sinus rhythm HR 75 with first degree AV Block, no significant ST-T wave abnormalities. Telemetry tracings indicate atrial fibrillation HR 90s. Chest xray - Pulmonary edema, hiatal hernia noted Chest CT- negative of PE, consolidation in the posterior lung king, extensive pulmonary interstitial and airspace infiltrate. moderate hiatal hernia Cardiac cath 09/2017- calcified aorta and coronary vessels without any obstructive CAD of significance. Mildly elevated end diastolic pressures with preserved LV function. REVIEW OF SYSTEMS At the time of my exam: CONSTITUTIONAL: Denies fever or chills. CARDIOVASCULAR: +shortness of breath, Denies chest pain, orthopnea, PND or palpitations. RESPIRATORY:+cough. GASTROINTESTINAL: Denies abdominal pain, diarrhea, constipation, nausea or vomiting. MUSCULOSKELETAL: Denies myalgias. NEUROLOGIC: Denies numbness, tingling, headacbe or weakness. ENDOCRINE: Denies fatigue, weight change, polydipsia or polyurina. GENITOURINARY: Denies burning, hematuria or urgency with micturation. HEMATOLOGIC: Denies history of anemia or bleeding. PHYSICAL EXAMINATION CONSTITUTIONAL: No apparent distress. HEENT: Head is normocephalic. Pupils are equal, round. Sclerae anicteric. Mucous membranes of the mouth are moist. No JVD. No carotid bruit. CHEST EXAMINATION: Lungs poor air exchange throughout No chest wall tenderness is noted on palpation or with deep breathing. HEART EXAMINATION: Irregular rate and rhythm. S1, S2 heard. Difficult to hear additional heart sounds or murmurs due to lung sounds ABDOMEN: Soft, nontender. Positive bowel sounds. EXTREMITIES: 2+ peripheral pulses, 1-2+ bilateral lower extremity edema and no calf tenderness. SKIN: no wounds, no bruising noted NEUROLOGIC EXAMINATION: Patient is awake, alert and oriented x3. ASSESSMENT Paroxysmal atrial fibrillation with rapid ventricular response -[id number] score 3 COVID-19 Elevated troponin- no signs of ischemia on EKG, patient denies symptoms of chest discomfort. Most likely related to acute hypoxia due to covid-19 infection Acute hypoxic respiratory failure History of Hypertension Former Nicotine Dependence History of non-obstructive CAD History of bilateral carotid artery disease Dyslipidemia PLAN -Obtain 2D echo to evaluate cardiac structure and function -Will check TSH -Start atenolol 100mg, wean off cardizem drip -Start Eliquis 5mg BID, stop heparin drip and check cost with case management. -Risk of thromboembolism due to atrial fibrillation and the benefits and risks of blood thinner was discussed with the patient. Nurse Practitioner note has been reviewed, I agree with a documented findings and plan of care. Patient was seen and examined. Past Medical History Past Medical History: Cancer, GERD/Reflux, Hyperlipidemia, Osteoarthritis (OA), Prostate Disorder, Sleep Apnea/CPAP/BIPAP, Syncope Additional Past Medical History / Comment(s): see Dr Grant Bowman, "episode 3 yrs ago passed out and vitals bottomed out", no cpap used, skin cancer on face, occ swelling of lower legs History of Any Multi-Drug Resistant Organisms: None Reported Past Surgical History: Heart Catheterization, Hernia Repair, Joint Replacement, Orthopedic Surgery Additional Past Surgical History / Comment(s): 4 hayley knee replacement-2 each knee, rt hip replacement, left foot surgery-plantar wart, bilateral cataract, left foot surgery for infection, stent left carotid artery Past Anesthesia/Blood Transfusion Reactions: No Reported Reaction Past Psychological History: No Psychological Hx Reported Smoking Status: Former smoker Past Alcohol Use History: None Reported Past Drug Use History: None Reported - Past Family History Mother Family Medical History: Cancer Additional Family Medical History / Comment(s): lung, bowel cancer Medications and Allergies Home Medications Medication Instructions Recorded Confirmed Type Omeprazole [PriLOSEC] 20 tab PO BID 10/08/13 08/15/20 History Ascorbic Acid [Vitamin C] 500 mg PO DAILY 08/05/14 08/15/20 History Cholecalciferol [Vitamin D3 (10 400 unit PO DAILY 08/05/14 08/15/20 History Mcg = 400 Iu)] Multivitamin [Men's Multi-Vitamin] 1 tab PO DAILY 08/05/14 08/15/20 History Atorvastatin [Lipitor] 40 mg PO HS 08/22/16 08/15/20 History Cyanocobalamin [Vitamin B-12] 500 mcg PO DAILY 08/22/16 08/15/20 History Aspirin EC [Ecotrin Low Dose] 81 mg PO DAILY 08/15/20 08/15/20 History Atenolol [Tenormin] 100 mg PO DAILY 08/15/20 08/15/20 History Dorzolamide-Timol 2.23%/0.68% 1 drop BOTH EYES BID 08/15/20 08/15/20 History [Cosopt] Naproxen 500 mg PO DAILY PRN 08/15/20 08/15/20 History [place]-3 Fatty Acids/Fish Oil [Fish 1 cap PO DAILY 08/15/20 08/15/20 History Oil 1,000 mg Softgel] Vitamin E 400 unit PO DAILY 08/15/20 08/15/20 History Zinc 50 mg PO DAILY 08/15/20 08/15/20 History Apixaban [Eliquis] 5 mg PO BID 30 Days #60 tab 08/16/20 Rx Allergies Allergy/AdvReac Type Severity Reaction Status Date / Time No Known Allergies Allergy Verified 08/15/20 23:17 Physical Exam Vitals: Vital Signs Temp Pulse Resp BP Pulse Ox 08/16/20 09:04 101 H 26 H 152/74 91 L 08/16/20 07:36 105 H 20 148/84 90 L 08/16/20 06:07 102 H 31 H 08/16/20 04:00 106 H 32 H 141/78 91 L 08/16/20 03:00 119 H 32 H 126/78 92 L 08/16/20 02:00 105 H 30 H 126/81 94 L 08/16/20 01:00 137 H 33 H 136/72 93 L 08/16/20 00:03 137 H 24 128/69 94 L 08/15/20 23:28 172 H 18 125/85 96 08/15/20 22:53 172 H 18 106/87 96 08/15/20 22:11 179 H 42 H 130/91 95 08/15/20 21:42 18 08/15/20 21:39 97.9 F 138 H 25 H 114/79 74 L Intake and Output 08/15/20 08/16/20 08/16/20 22:59 06:59 14:59 Intake Total 8.917 84.413 Balance 8.917 84.413 Intake: Intake, IV Titration 8.917 84.413 Amount Diltiazem 125 mg In 8.917 Sodium Chloride 0.9% 100 ml @ 5 MG/HR 5 mls/hr IV .Q24H [facility] Rx#:[id number] Heparin Sod,Pork in 0.45% 84.413 NaCl 25,000 unit In 0.45 % NaCl 1 250ml.bag @ 8.62 UNITS/KG/HR 9.97 mls/hr IV .Q24H [facility] Rx#: [id number] Other: Weight 115.666 kg Results 08/15/20 22:16 08/15/20 22:16 Cardiac Enzymes 08/15/20 08/15/20 08/16/20 Range/Units 22:16 22:16 01:20 AST 87 H (17-59) U/L Lactate Dehydrogenase 1458 H (313-618) U/L Troponin I 0.051 H* 0.106 H* (0.000-0.034) ng/mL 08/16/20 Range/Units 04:41 AST (17-59) U/L Lactate Dehydrogenase (313-618) U/L Troponin I 0.095 H* (0.000-0.034) ng/mL Coagulation 08/15/20 08/16/20 Range/Units 22:16 07:14 PT 10.3 (9.0-12.0) sec APTT 23.9 65.3 H (22.0-30.0) sec CBC 08/15/20 Range/Units 22:16 WBC 12.1 H (3.8-10.6) k/uL RBC 5.47 (4.30-5.90) m/uL Hgb 17.3 (13.0-17.5) gm/dL Hct 50.0 (39.0-53.0) % Plt Count 170 (150-450) k/uL Comprehensive Metabolic Panel 08/15/20 Range/Units 22:16 Sodium 133 L (137-145) mmol/L Potassium 3.3 L (3.5-5.1) mmol/L Chloride 107 (98-107) mmol/L Carbon Dioxide 19 L (22-30) mmol/L BUN 13 (9-20) mg/dL Creatinine 0.68 (0.66-1.25) mg/dL Glucose 145 H (74-99) mg/dL Calcium 6.2 L* (8.4-10.2) mg/dL AST 87 H (17-59) U/L ALT 27 (4-49) U/L Alkaline Phosphatase 73 (38-126) U/L Total Protein 4.6 L (6.3-8.2) g/dL Albumin 2.2 L (3.5-5.0) g/dL Current Medications Generic Name Dose Route Start Last Admin Trade Name Freq PRN Reason Stop Dose Admin Acetaminophen 650 mg 08/15/20 23:58 Acetaminophen Tab 325 Mg Tab PO Q6HR PRN Mild Pain or Fever > 100.5 Ascorbic Acid 500 mg 08/16/20 09:00 08/16/20 08:26 Ascorbic Acid 500 Mg Tab PO 500 mg DAILY [facility] Administration Atorvastatin Calcium 40 mg 08/16/20 21:00 Atorvastatin 40 Mg Tab PO HS [facility] Cholecalciferol 10 mcg 08/16/20 09:00 08/16/20 08:26 Cholecalciferol 10 Mcg (400 Iu) Tablet PO 10 mcg DAILY [facility] Administration Cyanocobalamin 500 mcg 08/16/20 09:00 08/16/20 08:26 Cyanocobalamin 500 Mcg Tab PO 500 mcg DAILY [facility] Administration Dexamethasone Sodium Phosphate 6 mg 08/16/20 09:00 08/16/20 08:26 Dexamethasone Sod Phosphate 10 Mg/Ml 1 Ml Vial IV 6 mg DAILY [facility] Administration Dorzolamide/Timolol 1 drops 08/16/20 09:00 Dorzolamide-Timolol 2.23%/0.68 10ml Btl BOTH EYES BID [facility] Heparin Sodium (Porcine) 0 unit 08/16/20 00:13 Heparin Sodium 1,000 Un/Ml (10ml Vl) IV PER PROTOCOL PRN Low PTT Protocol Diltiazem HCl 125 mg/ Sodium 125 mls @ 5 mls/hr 08/15/20 22:45 08/16/20 00:46 Chloride IV 10 mg/hr .Q24H [facility] 10 mls/hr Infusion 5 MG/HR Sodium Chloride 1,000 mls @ 130 mls/hr 08/15/20 23:00 08/16/20 07:44 Saline 0.9% IV 130 mls/hr .Q7H42M [facility] Administration Heparin Sodium/Sodium Chloride 250 mls @ 9.97 mls/hr 08/16/20 00:15 08/16/20 09:18 25,000 unit/ Sodium Chloride IV 6.62 units/kg/hr .Q24H [facility] 7.657 mls/hr Titration Protocol 8.62 UNITS/KG/HR Multivitamins 1 each 08/16/20 09:00 08/16/20 08:25 Multivitamins, Thera 1 Each Tab PO 1 each DAILY [facility] Administration Naloxone HCl 0.2 mg 08/15/20 23:58 Naloxone 0.4 Mg/Ml 1 Ml Vial IV Q2M PRN Opioid Reversal Pantoprazole Sodium 40 mg 08/16/20 09:00 08/16/20 08:26 Pantoprazole 40 Mg Tablet PO 40 mg BID [facility] Administration Vitamin E 400 unit 08/16/20 09:00 08/16/20 08:26 Vitamin E (Dl,Tocopheryl Acet) 400 Unit Cap PO 400 unit DAILY [facility] Administration Zinc Sulfate 220 mg 08/16/20 09:00 08/16/20 08:26 Zinc Sulfate 220 Mg Cap PO 220 mg DAILY [facility] Administration Intake and Output 08/15/20 08/16/20 08/16/20 22:59 06:59 14:59 Intake Total 8.917 84.413 Balance 8.917 84.413 Intake: Intake, IV Titration 8.917 84.413 Amount Diltiazem 125 mg In 8.917 Sodium Chloride 0.9% 100 ml @ 5 MG/HR 5 mls/hr IV .Q24H [facility] Rx#:[id number] Heparin Sod,Pork in 0.45% 84.413 NaCl 25,000 unit In 0.45 % NaCl 1 250ml.bag @ 8.62 UNITS/KG/HR 9.97 mls/hr IV .Q24H [facility] Rx#: [id number] Other: Weight 115.666 kg 08/15/20 22:16 08/15/20 22:16
[2020-08-16 11:51] LABS: Basophils # (A) 0.1 k/uL (0-0.2); Basophils % (A) 1 %; Eosinophils % (A) 0 %; HCT 50.7 % (39.0-53.0); HGB 17.6 gm/dL (13.0-17.5); Lymphocytes # (A) 0.3 k/uL (1.0-4.8); Lymphocytes % (A) 2 %; MCH 32.3 pg (25.0-35.0); MCHC 34.7 g/dL (31.0-37.0); Mean Platelet Volume 7.5; Monocytes # (A) 0.5 k/uL (0-1.0); Monocytes % (A) 3 %; Neutrophils # (A) 17.8 k/uL (1.3-7.7); Neutrophils % (A) 95 %; Platelet Count 151 k/uL (150-450); RBC 5.45 m/uL (4.30-5.90); RDW 12.7 % (11.5-15.5); WBC 18.9 k/uL (3.8-10.6)
[2020-08-16 11:59] LABS: ALT 35 U/L (4-49); AST 114 U/L (17-59); African American GFR (CKD) >90 (>60 ml/min/1.73 sqM); Albumin 2.8 g/dL (3.5-5.0); Alkaline Phosphatase 89 U/L (38-126); Anion Gap 8 mmol/L; Blood Urea Nitrogen 18 mg/dL (9-20); Calcium 7.7 mg/dL (8.4-10.2); Carbon Dioxide 21 mmol/L (22-30); Chloride 101 mmol/L (98-107); Glucose 203 mg/dL (74-99); Non-African American GFR(CKD) 85 (>60 ml/min/1.73 sqM); Potassium 4.6 mmol/L (3.5-5.1); Sodium 130 mmol/L (137-145); Total Bilirubin 0.9 mg/dL (0.2-1.3); Total Protein 5.8 g/dL (6.3-8.2)
[2020-08-16] MEDS: APIXABAN 5 MG TAB PO SCH ×2 (12:18→20:18)
[2020-08-16] MEDS: atenoloL 50 MG TAB PO SCH (12:18)
[2020-08-16 12:39] LABS: ABG Base Excess -4.9 mmol/L; ABG HCO3 21 mmol/L (21-25); ABG PCO2 36 mmHg (35-45); ABG PH 7.36 (7.35-7.45); ABG TCO2 22 mmol/L (19-24); Allen Test Performed? Yes
[2020-08-16 12:49] LABS: ABG Oxygen Saturation 72.7 % (94-97); ABG PO2 58 mmHg (83-108)
--- NOTE | 2020-08-16 13:41 | P.CNPUL ---
History of Present Illness Consult date: 08/16/20 Requesting physician: Savita Pederson Reason for consult: dyspnea, cough, hypoxemia, pneumonia, abnormal CXR/CT Chief complaint: Shortness of breath, acute hypoxemic respiratory failure. History of present illness: Pulmonary consult dated 08/16/2020. 79-year-old male, who was seen in the emergency department on August 15. The patient presented with shortness of breath. The patient apparently tested positive for coronavirus on August 13. He been sick for at least 5 or 6 days prior to that according to the ER krys. The patient apparently carries with him a diagnosis of both hypertension, and sleep apnea syndrome. I saw the patient in the emergency department. When I saw him he was on BiPAP, with settings of IPAP 12, EPAP 6, and 100%. Saturations are only in the mid 80s. I increased the IPAP to 16. I asked for a blood gas. The patient was on a Cardizem drip at 10 mg an hour, heparin via weightbase protocol, and saline at 130 mL an hour. He was quite tachypnea, with conversational dyspnea, and use of accessory muscles. The patient will need to go to the intensive care unit. I Vertie alerted the intensive care unit nurses. The patient denied any chest pain or chest discomfort. He was having diffuse muscle aches, and a rash. In addition, the patient apparently had some slight fever. His medical problems included gastroesophageal reflux disease, hyperlipidemia, osteoarthritis, hypertension, BPH, skin cancer, sleep apnea syndrome, syncope, and prior heart catheteri zation. Lab data included a white count of 18.9, hemoglobin 17.6, hematocrit 50.7, and platelet count of 151,000. Blood gases on 100%, showed a pO2 of 58, pCO2 36, and a pH of 7.36. Sodium 1:30, potassium 4.6, chlorides 101, CO2 21, anion gap 8, BUN 18, and creatinine 0.84. The patient's initial lactic acid was 6.3, and repeat was 3.7. C-reactive protein was 17.7, troponins were 0.051 is 0.095. LDH is 1458. Cardiology saw the patient for atrial fibrillation with RVR, and thought that the elevated troponins were likely related to supply/demand mismatch, as result of the hypoxemic induced by the coronavirus infection. Chest x-ray and computed tomography scan were both reviewed. The co mputed tomography scan was negative for pulmonary embolus some, but did show diffuse bilateral infiltrates, consistent with COVID 19 pneumonia. Review of Systems REVIEW OF SYSTEMS: CONSTITUTIONAL: Weakness and fatigue.] NEUROLOGIC: [ Negative.] HEENT: [ Negative.] CARDIAC: [Negative.] PULMONARY: Shortness of breath, chest congestion, cough. GI: [Negative.] : [Negative.] RHEUMATOLOGIC: [ Negative.] IMMUNOLOGIC: [ Negative.] ENDOCRINE: [Negative. ] DERMATOLOGIC: Rash. Past Medical History Past Medical History: Cancer, GERD/Reflux, Hyperlipidemia, Osteoarthritis (OA), Prostate Disorder, Sleep Apnea/CPAP/BIPAP, Syncope Additional Past Medical History / Comment(s): see Dr Burns H&P, "episode 3 yrs ago passed out and vitals bottomed out", no cpap used, skin cancer on face, occ swelling of lower legs History of Any Multi-Drug Resistant Organisms: None Reported Past Surgical History: Heart Catheterization, Hernia Repair, Joint Replacement, Orthopedic Surgery Additional Past Surgical History / Comment(s): 4 hayley knee replacement-2 each knee, rt hip replacement, left foot surgery-plantar wart, bilateral cataract, left foot surgery for infection, stent left carotid artery Past Anesthesia/Blood Transfusion Reactions: No Reported Reaction Past Psychological History: No Psychological Hx Reported Smoking Status: Former smoker Past Alcohol Use History: None Reported Past Drug Use History: None Reported - Past Family History Mother Family Medical History: Cancer Additional Family Medical History / Comment(s): lung, bowel cancer Medications and Allergies Home Medications Medication Instructions Recorded Confirmed Type Omeprazole [PriLOSEC] 20 tab PO BID 10/08/13 08/15/20 History Ascorbic Acid [Vitamin C] 500 mg PO DAILY 08/05/14 08/15/20 History Cholecalciferol [Vitamin D3 (10 400 unit PO DAILY 08/05/14 08/15/20 History Mcg = 400 Iu)] Multivitamin [Men's Multi-Vitamin] 1 tab PO DAILY 08/05/14 08/15/20 History Atorvastatin [Lipitor] 40 mg PO HS 08/22/16 08/15/20 History Cyanocobalamin [Vitamin B-12] 500 mcg PO DAILY 08/22/16 08/15/20 History Aspirin EC [Ecotrin Low Dose] 81 mg PO DAILY 08/15/20 08/15/20 History Atenolol [Tenormin] 100 mg PO DAILY 08/15/20 08/15/20 History Dorzolamide-Timol 2.23%/0.68% 1 drop BOTH EYES BID 08/15/20 08/15/20 History [Cosopt] Naproxen 500 mg PO DAILY PRN 08/15/20 08/15/20 History [place]-3 Fatty Acids/Fish Oil [Fish 1 cap PO DAILY 08/15/20 08/15/20 History Oil 1,000 mg Softgel] Vitamin E 400 unit PO DAILY 08/15/20 08/15/20 History Zinc 50 mg PO DAILY 08/15/20 08/15/20 History Apixaban [Eliquis] 5 mg PO BID 30 Days #60 tab 08/16/20 Rx Allergies Allergy/AdvReac Type Severity Reaction Status Date / Time No Known Allergies Allergy Verified 08/15/20 23:17 Physical Exam Osteopathic Statement: *. No significant issues noted on an osteopathic structural exam other than those noted in the History and Physical/Consult. Vitals: Vital Signs Temp Pulse Resp BP Pulse Ox 08/16/20 13:08 80 45 H 88 L 08/16/20 12:54 93 48 H 152/91 86 L 08/16/20 12:25 114 H 45 H 89 L 08/16/20 12:11 114 H 49 H 174/89 85 L 08/16/20 12:04 117 H 48 H 174/89 94 L 08/16/20 11:26 142/71 86 L 08/16/20 11:04 113 H 40 H 132/71 88 L 08/16/20 10:28 106 H 36 H 142/75 91 L 08/16/20 10:20 114 H 36 H 147/98 91 L 08/16/20 10:05 98 24 159/85 88 L 08/16/20 09:04 101 H 26 H 152/74 91 L 08/16/20 07:36 105 H 20 148/84 90 L 08/16/20 06:07 102 H 31 H 08/16/20 04:00 106 H 32 H 141/78 91 L 08/16/20 03:00 119 H 32 H 126/78 92 L 08/16/20 02:00 105 H 30 H 126/81 94 L 08/16/20 01:00 137 H 33 H 136/72 93 L 08/16/20 00:03 137 H 24 128/69 94 L 08/15/20 23:28 172 H 18 125/85 96 08/15/20 22:53 172 H 18 106/87 96 08/15/20 22:11 179 H 42 H 130/91 95 08/15/20 21:42 18 08/15/20 21:39 97.9 F 138 H 25 H 114/79 74 L Intake and Output 08/15/20 08/16/20 08/16/20 22:59 06:59 14:59 Intake Total 8.917 208.246 Balance 8.917 208.246 Intake: Intake, IV Titration 8.7 208.246 Amount Diltiazem 125 mg In 8.917 123.833 Sodium Chloride 0.9% 100 ml @ 5 MG/HR 5 mls/hr IV .Q24H ETELVINA Rx#:[id number] Heparin Sod,Pork in 0.45% 84.413 NaCl 25,000 unit In 0.45 % NaCl 1 250ml.bag @ 8.62 UNITS/KG/HR 9.97 mls/hr IV .Q24H ETELVINA Rx#: [id number] Other: Weight 115.666 kg Currently on BiPAP, 100%, with significant conversational dyspnea and use of accessory muscles. Saturations are in the high 80s, low 90s. HEENT examination is grossly unremarkable. Neck supple. Full range of motion. No adenopathy thyromegaly or neck vein distention. Cardiovascular examination reveals an irregular rhythm and rate. S1-S2 normal. No S3 or S4. No discernible murmur noted. Heart rate about 93 bpm and irregular. Lungs reveal diffuse bilateral rhonchi and bibasilar crackles. No wheezes. Breath sounds equal. Abdomen soft bowel sounds are heard. No masses or tenderness. Extremities are intact. No cyanosis clubbing or edema. Skin is without rash or lesion. Neurologic examination is brief but nonfocal. Results - Laboratory Findings CBC and BMP: 08/16/20 11:11 08/16/20 11:11 ABG ABG pH 7.36 (7.35-7.45) 08/16/20 12:35 ABG pCO2 36 mmHg (35-45) 08/16/20 12:35 ABG pO2 58 mmHg (83-108) L* 08/16/20 12:35 ABG O2 Saturation 72.7 % (94-97) L 08/16/20 12:35 PT/INR, D-dimer PT 10.3 sec (9.0-12.0) 08/15/20 22:16 INR 1.0 (<1.2) 08/15/20 22:16 D-Dimer 2.35 mg/L FEU (<0.60) H 08/15/20 22:16 Abnormal lab findings: Abnormal Labs 08/15/20 08/15/20 08/15/20 22:16 22:16 22:16 WBC 12.1 H Hgb Neutrophils # 11.0 H Lymphocytes # 0.5 L APTT D-Dimer 2.35 H ABG pO2 ABG O2 Saturation Sodium 133 L Potassium 3.3 L Carbon Dioxide 19 L Glucose 145 H Plasma Lactic Acid Darwin Calcium 6.2 L* Magnesium 1.4 L AST 87 H Lactate Dehydrogenase 1458 H Troponin I C-Reactive Protein 17.7 H Total Protein 4.6 L Albumin 2.2 L 08/15/20 08/15/20 08/16/20 22:16 22:16 01:20 WBC Hgb Neutrophils # Lymphocytes # APTT D-Dimer ABG pO2 ABG O2 Saturation Sodium Potassium Carbon Dioxide Glucose Plasma Lactic Acid Darwin 6.3 H* Calcium Magnesium AST Lactate Dehydrogenase Troponin I 0.051 H* 0.106 H* C-Reactive Protein Total Protein Albumin 08/16/20 08/16/20 08/16/20 01:20 04:41 04:41 WBC Hgb Neutrophils # Lymphocytes # APTT D-Dimer ABG pO2 ABG O2 Saturation Sodium Potassium Carbon Dioxide Glucose Plasma Lactic Acid Darwin 2.7 H* 2.2 H* Calcium Magnesium AST Lactate Dehydrogenase Troponin I 0.095 H* C-Reactive Protein Total Protein Albumin 08/16/20 08/16/20 08/16/20 07:14 08:58 11:11 WBC Hgb Neutrophils # Lymphocytes # APTT 65.3 H D-Dimer ABG pO2 ABG O2 Saturation Sodium 130 L Potassium Carbon Dioxide 21 L Glucose 203 H Plasma Lactic Acid Darwin 2.5 H* Calcium 7.7 L Magnesium AST 114 H Lactate Dehydrogenase Troponin I C-Reactive Protein Total Protein 5.8 L Albumin 2.8 L 08/16/20 08/16/20 08/16/20 11:11 12:02 12:35 WBC 18.9 H Hgb 17.6 H Neutrophils # Lymphocytes # APTT D-Dimer ABG pO2 58 L* ABG O2 Saturation 72.7 L Sodium Potassium Carbon Dioxide Glucose Plasma Lactic Acid Darwin 3.7 H* Calcium Magnesium AST Lactate Dehydrogenase Troponin I C-Reactive Protein Total Protein Albumin - Diagnostic Findings Chest x-ray: image reviewed CT scan - chest: image reviewed Assessment and Plan Assessment: Acute hypoxemic respiratory failure secondary to COVID 19 pneumonitis/pneumonia. Atrial fibrillation with rapid ventricular response. History of skin cancer. Gastroesophageal reflux disease. History of hyperlipidemia. History of osteoarthritis. History of BPH. History of sleep apnea syndrome. History of syncope. Prior history of tobacco use. Plan: Plan dated 08/16/2020. Also, the patient is likely outside the window for REM. In addition, he may be a candidate for TOCI The patient will need to be admitted to the intensive care unit. He may end up on the mechanical ventilator. Currently, he is on heparin via weightbase protocol, Cardizem drip at 10 mg an hour, saline at 130 mL an hour, and BiPAP, with settings of 16/6, and 100%. Current medications include Eliquis, vitamin C, atenolol, Tylenol, Lipitor, vitamin D3, Cardizem drip, vitamin B12, Decadron, Ativan, multiple vitamins, Narcan, protonix, vitamin E, and zinc. Time with Patient: Greater than 30
[2020-08-16] MEDS ORDERED: Magnesium Replacement Protocol 1 EACH MISC MISCELLANE PRN (14:17)
[2020-08-16] MEDS ORDERED: Potassium Replacement Protocol 1 EACH MISC MISCELLANE PRN (14:17)
[2020-08-16] MEDS ORDERED: ALBUTEROL HFA INHALER INHALATION PRN (14:18)
--- NOTE | 2020-08-16 15:28 | HP ---
HISTORY AND PHYSICAL DATE OF SERVICE: 08/16/2020 CHIEF COMPLAINT: Shortness of breath. HISTORY OF PRESENT ILLNESS: This 79-year-old gentleman with a past medical history of multiple medical history including GERD, hyperlipidemia, history of DJD, history of prostate disorder, sleep apnea, history of cardiac catheterization being followed by Dr. Aguilera in the [facility] in the outpatient setting apparently had shortness of breath for the last 5 days. The patient apparently tested positive for COVID-19 on the . The patient became increasingly progressively short of breath and the patient is using a friend's nebulizer. Because of lack of improvement, patient came to [facility] and admitted for further evaluation and treatment. The patient was found to be severely hypoxic. Patient started on BiPAP with some improvement in oxygenation. Patient is extremely anxious also. Evaluation in the ER showed bilateral extensive pulmonary lesions, which was reviewed personally by me, including both lobes and diffusely as well. There is no evidence of any pulmonary embolism. The patient was also found to be tachycardic and a 2D echo with Doppler was ordered which showed ejection fraction 55% to 60%. Cardiology has seen the patient. The patient also had atrial fibrillation paroxysmal and started on Cardizem drip and IV heparin was also at this time. The initial troponin is only 0.051 and 0.095 and acute cardiac syndrome is not being suspected by Cardiology at this point. The patient admitted for further evaluation and treatment. Dr. Quintero from the Pulmonary Critical also seen the patient closely. The Pulmonary Critical Care is thinking the patient is outside the window for remdesivir. Also, tocilizumab is being considered at this time. There is no history of any rigors or chills. PAST MEDICAL HISTORY: History of GERD, hyperlipidemia, history of DJD, history of prostate disorder, sleep apnea, syncope . MEDICATIONS: Medications prior to admission include home medications are: 1. Zinc. 2. Vitamin E. 3. Omeprazole. 4. [place] 3 fatty acids. 5. Naprosyn. 6. Multivitamin. 7. Dorzolamide. 8. Vitamin B12. 9. Vitamin D3. 10.Lipitor. 11.Tenormin. 12.Ecotrin. 13.Vitamin C. 14.Eliquis. ALLERGIES: None. FAMILY HISTORY: History of lung and bowel cancer. SOCIAL HISTORY: Previous history of smoking. No current smoking or alcohol. REVIEW OF SYSTEMS: Could not be taken the patient is on BiPAP at this time. PHYSICAL EXAMINATION: The patient is oriented x3, conscious. Pulse 93, was 114, irregular. Blood pressure 152/91, respiration 48, and temperature normal. Pulse ox 86% on BiPAP. BiPAP settings are noted. HEENT: Conjunctivae normal. Oral mucosa moist. NECK: No jugular venous distention. CARDIOVASCULAR: S1, S2 muffled. RESPIRATORY: Breath sounds diminished at the bases. A few scattered rhonchi. Respiratory efforts are markedly increased. The patient unable to complete grazyna a sentence. ABDOMEN: Soft, nontender. No mass palpable. LEGS: No edema, no swelling. NERVOUS SYSTEM: No focal deficit. LYMPHATICS: No lymphadenopathy of the neck, axillae or groin. SKIN: No ulcer, rash or bleeding. JOINTS: No active deforming arthropathy. LABS: WBC 18.9. D-dimer is 2.35. Sodium 133, potassium 3.3. Troponin 0.051. CRP is 17.7. TSH is 0.568. ASSESSMENT: 1. Acute COVID-19 bilateral interstitial pneumonia with acute hypoxic respiratory failure on BiPAP. 2. Atrial fibrillation paroxysmal with fast ventricular rate on Cardizem drip. 3. Hyponatremia. 4. Hypokalemia. 5. Elevated blood glucose. 6. Elevated lactic acid. 7. Hypocalcemia. 8. Hypomagnesemia. 9. Elevated troponin 0.095 of undetermined etiology. 10.Elevated inflammatory markers of COVID-19. 11.Elevated D-dimer without any evidence of pulmonary embolism. 12.Increased WBC. 13.Gastroesophageal reflux disease. 14.Hyperlipidemia. 15.Degenerative joint disease. 16.History of prostate disorder. 17.History of sleep apnea. 18.History of syncope. 19.History of cardiac catheterization. 20.History of degenerative joint disease. 21.Remote history of nicotine dependence. 22.Obesity with body mass of 39.9. 23.FULL CODE. RECOMMENDATIONS AND DISCUSSION: This 79-year-old gentleman who presented with multiple complex medical issues, we will monitor the patient closely. Continue the current medications. Continue symptomatic treatment. Monitor in ICU. Continue with BiPAP. Tocilizumab possibly. Bronchodilators. Continue the rest of medications. Closely follow with multiple consultants. Prognosis extremely guarded because of multiple complex medical issues. I would also recommend cultures including sputum culture also. Monitor blood sugars closely. Further recommendations to follow. MMODL / IJN: [id number] / KISHAN
[2020-08-16 16:06] LABS: Glucose,Whole Blood 187 mg/dL (75-99)
[2020-08-16] MEDS: DORZOLAMIDE-TIMOLOL 2.23%/0.68 10ML BTL BOTH EYES SCH ×2 (16:19→21:05)
[2020-08-16] MEDS ORDERED: TOCILIZUMAB 800 MG in SODIUM CHLORIDE 0.9% 60 ML IV ONE ×2 (16:30)
[2020-08-16] MEDS: ALBUTEROL HFA INHALER INHALATION SCH ×2 (16:40→19:36)
[2020-08-16 16:55] LABS: ABG Base Excess -3.4 mmol/L; ABG HCO3 21 mmol/L (21-25); ABG Oxygen Saturation 89.9 % (94-97); ABG PCO2 34 mmHg (35-45); ABG PH 7.41 (7.35-7.45); ABG TCO2 22 mmol/L (19-24)
[2020-08-16 16:56] LABS: ABG PO2 59 mmHg (83-108)
[2020-08-16] MEDS ORDERED: LIDOCAINE 1% INJ 10MG/ML (20 ML MDV) ONE (16:56)
[2020-08-16] MEDS ORDERED: DEXMEDETOMIDINE/0.9% NACL(PMX) 400 MCG in EMPTY BAG 1 BAG IV SCH (17:30)
[2020-08-16] MEDS: INSULIN ASPART (NovoLOG) 100 UNIT/ML VIAL SQ SCH ×2 (18:12→20:30)
[2020-08-16] MEDS ORDERED: ACETAMINOPHEN IV (For NPO) 1,000 MG in EMPTY BAG 1 BAG IVPB ONE (19:00)
[2020-08-16] MEDS: ATORVASTATIN 40 MG TAB PO SCH (20:18)
[2020-08-16 20:23] LABS: Glucose,Whole Blood 193 mg/dL (75-99)
[2020-08-17 05:31] LABS: HCT 47.8 % (39.0-53.0); HGB 16.5 gm/dL (13.0-17.5); MCH 32.5 pg (25.0-35.0); MCHC 34.5 g/dL (31.0-37.0); MCV 94.1 fL (80.0-100.0); Mean Platelet Volume 7.6; Platelet Count 147 k/uL (150-450); RBC 5.08 m/uL (4.30-5.90); RDW 12.8 % (11.5-15.5); WBC 14.4 k/uL (3.8-10.6)
[2020-08-17 05:55] LABS: Calcium 7.6 mg/dL (8.4-10.2); Magnesium 2.7 mg/dL (1.6-2.3); Potassium 4.7 mmol/L (3.5-5.1)
--- NOTE | 2020-08-17 06:26 | CONS ---
CONSULTATION DATE OF SERVICE: 08/16/2020 REASON FOR CONSULTATION: COVID-19 infection. HISTORY OF PRESENT ILLNESS: The patient is a 79-year-old male with past medical history significant for hypertension. The patient presented to the [facility] ER last night for evaluation of increasing shortness of breath. The patient's symptoms have been going on for 5 days before presentation to the hospital and apparently the patient was tested for COVID-19 two days before presentation to the hospital and he came back positive. The patient has been complaining of progressive increasing shortness of breath to the point that he was unable to take a deep breath. The patient did have a cough which is moderate in intensity but mostly dry in nature. Not bringing up any sputum. Patient denies any nausea, vomiting. Did have decreased oral intake. No abdominal pain or diarrhea. The patient was noticed to be in acute respiratory distress, tachypneic, with muscles of respiration use. Patient on presentation to the hospital did have a fever of 101.9 degrees Fahrenheit. The patient has been tachypneic. He was saturating 74% on presentation to the hospital, now on BIPAP and saturating around 86%. The patient did have an elevated white count with lymphopenia. He did have normal kidney function. Elevated lactic acid. AST was elevated. Troponins are elevated as well. CRP was 17.7. Procalcitonin 0.47. The patient did have a chest x-ray with pulmonary edema that could be related to developing RDS or heart failure. The patient also had a CT angiogram of the chest with no evidence of PE but did shows extensive pulmonary infiltrate consistent with pneumonia or ARDS. The patient has been admitted to ICU. Infectious Disease was consulted for further management. REVIEW OF SYSTEMS: Positive points have been mentioned in HPI. Rest of systems are negative. PAST MEDICAL HISTORY: Gastroesophageal reflux disease, hyperlipidemia, osteoarthritis, prostate disorder, syncope, sleep apnea. PAST SURGICAL HISTORY: Heart catheterization, hernia repair, bilateral knee replacement, right hip replacement and right foot surgery. SOCIAL HISTORY: Remote history of smoking. No drinking or drug use. FAMILY HISTORY: Mother with history of lung cancer. ALLERGIES: No known drug allergies. MEDICATIONS: The patient is currently on Tylenol, Ventolin, Eliquis, vitamin C, Tenormin, Lipitor, dexamethasone, NovoLog, zinc, aspirin. Did receive a dose of tocilizumab. PHYSICAL EXAMINATION: VITAL SIGNS: Blood pressure 96/61 with a pulse of 88, temperature 101.9, he is 96% on BIPAP. GENERAL DESCRIPTION: Patient is an elderly male lying in mild distress with tachypnea and accessory muscles of respiration use. HEENT: Examination shows no pallor or scleral icterus. Oral mucous membrane is dry. NECK: Trachea central, no thyromegaly. LUNGS: Unlabored breathing, coarse breath sounds at the bases. No wheeze. HEART: S1-S2, regular rate and rhythm. ABDOMEN: Soft, no tenderness. No guarding or rigidity. EXTREMITIES: No edema of the feet. SKIN: No rash or mass palpable. NEUROLOGICAL: Patient is awake, alert, oriented times three. Mood and affect normal. LABS: BUN of 13, creatinine 0.6, lactic acid 6.3 and LDH 1458. CRP 17.7, procalcitonin 0.47, hemoglobin 17.1, white count of 18.9. Chest x-ray report as mentioned above. DIAGNOSTIC IMPRESSION: Patient admitted to the hospital with sepsis. This patient did have fever, elevated white count, tachypnea and toxicemia, source is acute severe COVID-19 infection. Clinically no evidence of any secondary bacterial pneumonia. With acute respiratory failure and need for BIPAP and severe infection, patient possibly out of the viremia phase and more likely in the cytochrome phase and will benefit more from Actemra than remdesivir, based on the clinical studies. PLAN: 1. The patient has received a dose of Actemra that hopefully will help. 2. The patient to continue with anticoagulation on the Eliquis in addition to the dexamethasone, zinc and ascorbic acid. 3. Droplets isolation and respiratory support. 4. We will follow on his clinical condition and further adjust medication if needed. Thank you for this consultation. Will follow this patient along with you. MMODL / IJN: [id number] /
[2020-08-17 06:52] LABS: D-Dimer 6.26 mg/L FEU (<0.60); INR 1.1 (<1.2); Prothrombin Time 11.3 sec (9.0-12.0)
[2020-08-17] MEDS: INSULIN ASPART (NovoLOG) 100 UNIT/ML VIAL SQ SCH ×3 (07:11→17:32)
--- NOTE | 2020-08-17 07:35 | XR ---
EXAMINATION TYPE: XR chest 1V portable DATE OF EXAM: 08/17/2020 Comparison: 08/15/2020 Clinical History: 79-year-old male assess lungs. Findings: Heart borderline enlarged. Patchy confluent bilateral airspace opacities persist but show slight impr oving aeration. No pleural effusion. Impression: Patchy and confluent bilateral airspace disease shows slight improvement from prior.
[2020-08-17] MEDS ORDERED: HEPARIN SODIUM 1,000 UN/ML (10ML VL) IV PRN (07:49)
[2020-08-17] MEDS ORDERED: ETOMIDATE 2 MG/ML 10 ML VIAL ONE (07:55)
[2020-08-17] MEDS ORDERED: SUCCINYLCHOLINE CHLORIDE VIAL 200 MG/10 ML VIAL IV ONE (07:55)
[2020-08-17] MEDS ORDERED: propofoL 100 ML IV ONE (07:59)
[2020-08-17] MEDS ORDERED: HEPARIN SOD,PORK IN 0.45% NACL 25,000 UNIT in 0.45% NACL 1 250ML.BAG IV SCH (08:00)
--- NOTE | 2020-08-17 08:46 | XR ---
EXAMINATION TYPE: XR chest 1V portable DATE OF EXAM: 08/17/2020 Comparison: 08/17/2020, earlier today Clinical History: 79-year-old male Tube placement Findings: ET tube tip 3 cm from the victor hugo. NG tube courses below the diaphragm. The sidehole is at the GE junc tion level. Consider slight advancement. Heart mildly enlarged. Bilateral patchy confluent airspace o pacities especially in the record of the lungs similar to slightly increased from prior. Impression: 1. NG tube side hole at the GE junction level. Consider slight advancement. 2. Patchy and confluent bilateral airspace disease may be slightly worsened from earlier this morning .
[2020-08-17] MEDS: ALBUTEROL HFA INHALER INHALATION SCH ×4 (08:47→20:56)
[2020-08-17] MEDS: APIXABAN 5 MG TAB PO SCH ×3 (09:10→22:21)
[2020-08-17] MEDS: CHLORHEXIDINE GLUCONATE 15 ML CUP MUCOUS MEM SCH ×2 (09:11→22:22)
[2020-08-17] MEDS: VITAMIN E (DL,TOCOPHERYL ACET) 400 UNIT CAP PO SCH (09:11)
[2020-08-17] MEDS: MULTIVITAMINS, THERA 1 EACH TAB PO SCH (09:11)
[2020-08-17] MEDS: PANTOPRAZOLE 40 MG TABLET PO SCH (09:11)
[2020-08-17] MEDS: ZINC SULFATE 220 MG CAP PO SCH (09:11)
[2020-08-17] MEDS: CYANOCOBALAMIN 500 MCG TAB PO SCH (09:11)
[2020-08-17] MEDS: ASCORBIC ACID 500 MG TAB PO SCH (09:11)
[2020-08-17] MEDS: atenoloL 50 MG TAB PO SCH (09:11)
[2020-08-17] MEDS ORDERED: SODIUM CHLORIDE 0.9% 1,000 ML IV ONE ×2 (09:14→21:02)
[2020-08-17] MEDS ORDERED: fentaNYL (PF). 1,000 MCG in SODIUM CHLORIDE 0.9% 80 ML IV SCH (09:15)
[2020-08-17] MEDS: CHOLECALCIFEROL 10 MCG (400 IU) TABLET PO SCH (09:32)
[2020-08-17] MEDS: DORZOLAMIDE-TIMOLOL 2.23%/0.68 10ML BTL BOTH EYES SCH ×2 (09:33→22:22)
[2020-08-17] MEDS: DEXAMETHASONE SOD PHOSPHATE 10 MG/ML 1 ML VIAL IV SCH (09:38)
[2020-08-17 10:19] LABS: ABG Base Excess -8.8 mmol/L; ABG HCO3 20 mmol/L (21-25); ABG Oxygen Saturation 62.5 % (94-97); ABG PCO2 51 mmHg (35-45); ABG TCO2 21 mmol/L (19-24)
[2020-08-17 10:24] LABS: ABG PH 7.19 (7.35-7.45); ABG PO2 41 mmHg (83-108)
[2020-08-17] MEDS ORDERED: CISATRACURIUM 2 MG/ML 5 ML VIAL IV ONE (10:24)
[2020-08-17] MEDS ORDERED: NOREPINEPHRIN 4 MG-0.9% NS PMX 4 MG/250 ML ML IV ONE ×2 (10:43→22:46)
[2020-08-17] MEDS ORDERED: CISATRACURIUM 200 MG in SODIUM CHLORIDE 0.9% 180 ML IV SCH (11:00)
--- NOTE | 2020-08-17 11:27 | XR ---
EXAMINATION TYPE: XR chest 1V portable DATE OF EXAM: 08/17/2020 CLINICAL HISTORY: Difficulty breathing progress study. Central line placement. TECHNIQUE: Single AP portable supine view of the chest is obtained. COMPARISON: Chest x-ray from earlier today an older studies FINDINGS: New right subclavian central venous catheter terminates in right atrium. No pneumothorax n oted. Stable endotracheal and orogastric tubes. Persistent mild cardiomegaly with bilateral multifocal and confluent opacities on background chronic parenchymal change. No pleural effusion or pneumothorax seen bilaterally. Degenerative change bilater al glenohumeral joints. No significant change from study earlier today. IMPRESSION: As above
[2020-08-17] MEDS: NOREPINEPHRINE 4 MG in SODIUM CHLORIDE 0.9% 250 ML IV SCH ×8 (11:29→23:38)
[2020-08-17] MEDS: SODIUM CHLORIDE 0.9% 1,000 ML IV SCH ×2 (11:29→23:37)
--- NOTE | 2020-08-17 11:32 | PCN ---
PROCEDURE NOTE OPERATIVE REPORT: Placement of a right brachial arterial line. PREOPERATIVE DIAGNOSIS: Acute hypoxic respiratory failure and hypotension. POSTOPERATIVE DIAGNOSIS: Acute hypoxic respiratory failure and hypotension. ANESTHESIA USED: None deployed. DESCRIPTION OF PROCEDURE: The patient was placed in supine position. The right brachial region was prepared in a sterile fashion and drapes were applied. The right brachial artery was localized by Doppler, then the right brachial artery was cannulated easily, a guidewire was placed, and a Cook catheter was inserted over the guidewire, and the guidewire was removed. Good blood flow, good waveform noted. No evidence of any immediate complication. Line was secured using 3.0 silk sutures. MMODL / IJN: [id number] /
--- NOTE | 2020-08-17 11:38 | PCN ---
PROCEDURE NOTE OPERATIVE REPORT: Placement of a right subclavian central line. PREOPERATIVE DIAGNOSIS: Acute hypoxic respiratory failure secondary to COVID-19 pneumonia and hypotension. POSTOPERATIVE DIAGNOSIS: Acute hypoxic respiratory failure secondary to COVID-19 pneumonia and hypotension. ANESTHESIA USED: 2 mL of 1% lidocaine. PROCEDURE: The patient was placed in a supine position, the area of the right subclavian and right neck region was prepared in a sterile fashion and drapes were applied. The area below the right clavicle was locally anesthetized with lidocaine. Then using the infraclavicular approach, the right subclavian vein was easily cannulated, a guidewire was placed and the area around the guidewire was dilated. Then a triple-lumen catheter was inserted over the guidewire, and the guidewire was removed. Good blood flow noted, line was secured using 3.0 silk sutures. Chest x-ray postoperatively showed adequate placement of the line and no evidence of any immediate complications. MMODL / IJN: [id number] /
[2020-08-17 11:46] LABS: C Reactive Protein 33.5 mg/dL (<1.0)
[2020-08-17 11:58] LABS: Glucose,Whole Blood 174 mg/dL (75-99)
--- NOTE | 2020-08-17 12:15 | P.PN ---
Subjective This is a pleasant 79-year-old male past medical history significant for hypertension, dyslipidemia, non-obstructive CAD, bilateral carotid artery di sease, former nicotine dependence (quit 40+ years ago ). He follows in the office with Dr. Burns. We have been asked to see in consultation for new onset atrial fibrillation and elevated troponin . Patient presents to the emergency department with worsening shortness of breath. Was tested positive for Covid-19 on August 13, and since then has become more short of breath and his family brought him to the emergency department. Patient was found to be in atrial fibrillation with rapid ventricular response HR 130-170s, Hypoxic SpO2 74% on room air. Patient started on BiPAP, 10mg IV Cardizem bolus, IV Cardizem drip is at 10mg/hr and Heparin drip was initiated. Patients current home cardiac medication include atorvastatin 40mg nightly, aspirin 81mg daily, atenolol 100mg daily. Patient denies history of Diabetes, Stroke, AR. Troponin trend 0.05-->0.10-->0.09 Patient admitted to ICU yesterday due to worsening respiratory distress. Seen today at bedside, has worsening respiratory status, requiring intubation and mechanical ventilation. OG tube has been placed. Laboratory data reviewed, , WBC 14.4, Hgb 16.5, platelets 147, d-dimer 6.26, sodium 130, potassium 4.7, serum creatinine 0.95, magnesium 2.7. DIAGNOSTICS Echocardiogram 08/16/20: EF 55-60%, trace MR, mild TR Prior Echocardiogram 06/16/2020- Office revealed EF 55%, mildy dilated LA, mild AR, mild MR, mild TR, moderate pulmonic regurgitation. Telemetry tracings indicate atrial fibrillation HR 90s. Chest xray - Pulmonary edema, hiatal hernia noted Chest CT- negative of PE, consolidation in the posterior lung king, extensive pulmonary interstitial and airspace infiltrate. moderate hiatal hernia Cardiac cath 09/2017- calcified aorta and coronary vessels without any obstructive CAD of significance. Mildly elevated end diastolic pressures with preserved LV function. PHYSICAL EXAMINATION BP 105/52 HR 67, 80% on BiPap, RR 38-40. Tmax 101.9 last night CONSTITUTIONAL: Appears in Respiratory distress NEUROLOGIC EXAMINATION: Patient is awake, alert and oriented x3. Thorough physical exam not completed due to covid-19 infection ASSESSMENT Paroxysmal atrial fibrillation with rapid ventricular response -[id number] score 3 COVID-19 Elevated troponin- no signs of ischemia on EKG, patient denied symptoms of chest discomfort. Most likely related to acute hypoxia due to covid-19 infection Acute hypoxic respiratory failure History of Hypertension Former Nicotine Dependence History of non-obstructive CAD History of bilateral carotid artery disease Dyslipidemia PLAN -Stop Cardizem drip -Continue atenolol 100mg -Eliquis 5mg BID - this medication has a $428 cost per case management, will continue for now. Patient eligible for 1 free month once discharged and can transition patient to alternative anticoagulation. Case management following patient. -Ongoing covid-19 treatment Nurse Practitioner note has been reviewed, I agree with a documented findings and plan of care. Patient was seen and examined. Objective - Vital Signs Vital signs: Vital Signs Temp 98.7 F 08/17/20 04:00 Pulse 67 08/17/20 07:00 Resp 38 H 08/17/20 07:00 BP 105/52 08/17/20 07:00 Pulse Ox 80 L 08/17/20 07:00 Intake & Output 08/16/20 08/17/20 08/17/20 18:59 06:59 18:59 Intake Total 508.246 618.976 145.667 Output Total 174 310 30 Balance 334.246 308.976 115.667 Weight 117.1 kg Intake: IV 605 55 Diltiazem 125 mg In 55 5 Sodium Chloride 0.9% 100 ml @ 5 MG/HR 5 mls/hr IV .Q24H [facility] Rx#:[id number] Sodium Chloride 0.9% 1, 550 50 000 ml @ 50 mls/hr IV . Q20H [facility] Rx#:[id number] Intake, IV Titration 508.246 13.976 90.667 Amount Dexmedetomidine/0.9% NaCl 13.976 (Pmx) 400 mcg In Empty Bag 1 bag @ Titrate IV . Q0M [facility] Rx#:[id number] Diltiazem 125 mg In 123.833 90.667 Sodium Chloride 0.9% 100 ml @ 5 MG/HR 5 mls/hr IV .Q24H [facility] Rx#:[id number] Heparin Sod,Pork in 0.45% 84.413 NaCl 25,000 unit In 0.45 % NaCl 1 250ml.bag @ 8.62 UNITS/KG/HR 9.97 mls/hr IV .Q24H [facility] Rx#: [id number] Sodium Chloride 0.9% 1, 200 000 ml @ 50 mls/hr IV . Q20H [facility] Rx#:[id number] Tocilizumab 800 mg In 100 Sodium Chloride 0.9% 60 ml @ 100 mls/hr IV ONCE ONE Rx#:[id number] Output: Urine 174 310 30 Other: Voiding Method Indwelling Catheter Indwelling Catheter - Labs CBC & Chem 7: 08/17/20 04:45 08/17/20 04:49 Labs: Abnormal Lab Results - Last 24 Hours (Table) 08/15/20 08/16/20 08/16/20 Range/Units 22:16 08:58 11:11 WBC (3.8-10.6) k/uL Hgb (13.0-17.5) gm/dL Plt Count (150-450) k/uL Neutrophils # (1.3-7.7) k/uL Lymphocytes # (1.0-4.8) k/uL APTT (22.0-30.0) sec D-Dimer (<0.60) mg/L FEU ABG pCO2 (35-45) mmHg ABG pO2 (83-108) mmHg ABG O2 Saturation (94-97) % Sodium 130 L (137-145) mmol/L Carbon Dioxide 21 L (22-30) mmol/L BUN (9-20) mg/dL Glucose 203 H (74-99) mg/dL POC Glucose (mg/dL) (75-99) mg/dL Plasma Lactic Acid Darwin 2.5 H* (0.7-2.0) mmol/L Calcium 7.7 L (8.4-10.2) mg/dL Magnesium (1.6-2.3) mg/dL AST 114 H (17-59) U/L Lactate Dehydrogenase (313-618) U/L Creatine Kinase (55-170) U/L Total Protein 5.8 L (6.3-8.2) g/dL Albumin 2.8 L (3.5-5.0) g/dL Procalcitonin 0.47 H (0.02-0.09) ng/mL 08/16/20 08/16/20 08/16/20 Range/Units 11:11 12:02 12:35 WBC 18.9 H (3.8-10.6) k/uL Hgb 17.6 H (13.0-17.5) gm/dL Plt Count (150-450) k/uL Neutrophils # 17.8 H (1.3-7.7) k/uL Lymphocytes # 0.3 L (1.0-4.8) k/uL APTT (22.0-30.0) sec D-Dimer (<0.60) mg/L FEU ABG pCO2 (35-45) mmHg ABG pO2 58 L* (83-108) mmHg ABG O2 Saturation 72.7 L (94-97) % Sodium (137-145) mmol/L Carbon Dioxide (22-30) mmol/L BUN (9-20) mg/dL Glucose (74-99) mg/dL POC Glucose (mg/dL) (75-99) mg/dL Plasma Lactic Acid Darwin 3.7 H* (0.7-2.0) mmol/L Calcium (8.4-10.2) mg/dL Magnesium (1.6-2.3) mg/dL AST (17-59) U/L Lactate Dehydrogenase (313-618) U/L Creatine Kinase (55-170) U/L Total Protein (6.3-8.2) g/dL Albumin (3.5-5.0) g/dL Procalcitonin (0.02-0.09) ng/mL 08/16/20 08/16/20 08/16/20 Range/Units 14:43 16:04 16:11 WBC (3.8-10.6) k/uL Hgb (13.0-17.5) gm/dL Plt Count (150-450) k/uL Neutrophils # (1.3-7.7) k/uL Lymphocytes # (1.0-4.8) k/uL APTT 34.6 H (22.0-30.0) sec D-Dimer (<0.60) mg/L FEU ABG pCO2 (35-45) mmHg ABG pO2 (83-108) mmHg ABG O2 Saturation (94-97) % Sodium (137-145) mmol/L Carbon Dioxide (22-30) mmol/L BUN (9-20) mg/dL Glucose (74-99) mg/dL POC Glucose (mg/dL) 187 H (75-99) mg/dL Plasma Lactic Acid Darwin (0.7-2.0) mmol/L Calcium (8.4-10.2) mg/dL Magnesium 2.6 H (1.6-2.3) mg/dL AST (17-59) U/L Lactate Dehydrogenase (313-618) U/L Creatine Kinase (55-170) U/L Total Protein (6.3-8.2) g/dL Albumin (3.5-5.0) g/dL Procalcitonin (0.02-0.09) ng/mL 08/16/20 08/16/20 08/16/20 Range/Units 16:11 16:52 20:21 WBC (3.8-10.6) k/uL Hgb (13.0-17.5) gm/dL Plt Count (150-450) k/uL Neutrophils # (1.3-7.7) k/uL Lymphocytes # (1.0-4.8) k/uL APTT (22.0-30.0) sec D-Dimer (<0.60) mg/L FEU ABG pCO2 34 L (35-45) mmHg ABG pO2 59 L* (83-108) mmHg ABG O2 Saturation 89.9 L (94-97) % Sodium (137-145) mmol/L Carbon Dioxide (22-30) mmol/L BUN (9-20) mg/dL Glucose (74-99) mg/dL POC Glucose (mg/dL) 193 H (75-99) mg/dL Plasma Lactic Acid Darwin 3.2 H* (0.7-2.0) mmol/L Calcium (8.4-10.2) mg/dL Magnesium (1.6-2.3) mg/dL AST (17-59) U/L Lactate Dehydrogenase (313-618) U/L Creatine Kinase (55-170) U/L Total Protein (6.3-8.2) g/dL Albumin (3.5-5.0) g/dL Procalcitonin (0.02-0.09) ng/mL 08/17/20 08/17/20 08/17/20 Range/Units 04:45 04:45 04:49 WBC 14.4 H (3.8-10.6) k/uL Hgb (13.0-17.5) gm/dL Plt Count 147 L (150-450) k/uL Neutrophils # (1.3-7.7) k/uL Lymphocytes # (1.0-4.8) k/uL APTT (22.0-30.0) sec D-Dimer 6.26 H (<0.60) mg/L FEU ABG pCO2 (35-45) mmHg ABG pO2 (83-108) mmHg ABG O2 Saturation (94-97) % Sodium 130 L (137-145) mmol/L Carbon Dioxide 20 L (22-30) mmol/L BUN 34 H (9-20) mg/dL Glucose 180 H (74-99) mg/dL POC Glucose (mg/dL) (75-99) mg/dL Plasma Lactic Acid Darwin (0.7-2.0) mmol/L Calcium 7.6 L (8.4-10.2) mg/dL Magnesium 2.7 H (1.6-2.3) mg/dL AST (17-59) U/L Lactate Dehydrogenase 2214 H (313-618) U/L Creatine Kinase 482 H (55-170) U/L Total Protein (6.3-8.2) g/dL Albumin (3.5-5.0) g/dL Procalcitonin (0.02-0.09) ng/mL Microbiology - Last 24 Hours (Table) 08/15/20 21:55 Blood Culture - Preliminary Blood No Growth after 24 hours 08/15/20 22:10 Blood Culture - Preliminary Blood No Growth after 24 hours 08/16/20 16:13 Urine Culture - Preliminary Urine,Catheterized
--- NOTE | 2020-08-17 12:22 | P.PN ---
Subjective Progress Note Date: 08/17/20 Principal diagnosis: Acute hypoxic respiratory failure secondary to COVID-19 pneumonia 79-year-old male, who was seen in the emergency department on August 15. The patient presented with shortness of breath. The patient apparently tested positive for coronavirus on August 13. He been sick for at least 5 or 6 days prior to that according to the ER krys. The patient apparently carries with him a diagnosis of both hypertension, and sleep apnea syndrome. I saw the patient in the emergency department. When I saw him he was on BiPAP, with settings of IPAP 12, EPAP 6, and 100%. Saturations are only in the mid 80s. I increased the IPAP to 16. I asked for a blood gas. The patient was on a Cardizem drip at 10 mg an hour, heparin via weightbase protocol, and saline at 130 mL an hour. He was quite tachypnea, with conversational dyspnea, and use of accessory muscles. The patient will need to go to the intensive care unit. I Vertie alerted the intensive care unit nurses. The patient denied any chest pain or chest discomfort. He was having diffuse muscle aches, and a rash. In addition, the patient apparently had some slight fever. His medical problems included gastroesophageal reflux disease, hyperlipidemia, osteoarthritis, hypertension, BPH, skin cancer, sleep apnea syndrome, syncope, and prior heart catheterization. Lab data included a white count of 18.9, hemoglobin 17.6, hematocrit 50.7, and platelet count of 151,000. Blood gases on 100%, showed a p O2 of 58, pCO2 36, and a pH of 7.36. Sodium 1:30, potassium 4.6, chlorides 101, CO2 21, anion gap 8, BUN 18, and creatinine 0.84. The patient's initial lactic acid was 6.3, and repeat was 3.7. C-reactive protein was 17.7, troponins were 0.051 is 0.095. LDH is 1458. Cardiology saw the patient for atrial fibrillation with RVR, and thought that the elevated troponins were likely related to supply/demand mismatch, as result of the hypoxemic induced by the coronavirus infection. Chest x-ray and computed tomography scan were both reviewed. The computed tomography scan was negative for pulmonary embolus some, but did show diffuse bilateral infiltrates, consistent with COVID 19 pneumonia. Patient was reevaluated today in the ICU, and as I evaluated the patient, the patient was noted to be in severe respiratory distress, his respiratory rate was in the 40s, his O2 saturation has been in the 70s, patient seems to be struggling to breathe, and I recommended immediate intubation and mechanical ventilation. Patient was placed on assist control rate of 20, volume is 400 FiO2 on the percent and PEEP was increased to 14. Patient was intubated on 08/17. He is now on propofol, Cardizem is off, and we recommended starting the patient on Nimbex as the patient was not oxygenating well post intubation. Ventilator set settings were changed because of high peak airway pressure and high static pressure, he is now on pressure control mode of mechanical ventilation, pressure control 20, inspiratory time is 0.9, FiO2 is 100, respiration is 30, and PEEP is up to 14. Patient was hypotensive, hence I recommended fluid boluses, started the patient on Nimbex, added fentanyl, ABG post immediate intubation showed a pO2 of 41 pCO2 of 51 pH of 7.19. Hence the ventilator settings were changed accordingly as noted above. Chest x-ray shows bilateral patchy infiltrates. Consistent with Covid 19 pneumonia. His WBC count today is 14.4 hemoglobin is 16.7 his platelets are 147 electrodes are no rmal renal profile is normal LDH is 2214 CPK is 482 C-reactive protein is 33.5 patient was hypotensive post intubation, did not improve with fluid boluses, hence I started the patient on norepinephrine and this will be titrated accordingly. Objective - Vital Signs Vital signs: Vital Signs Temp 98.7 F 08/17/20 04:00 Pulse 67 08/17/20 07:00 Resp 38 H 08/17/20 07:00 BP 105/52 08/17/20 07:00 Pulse Ox 80 L 08/17/20 07:00 Intake & Output 08/16/20 08/17/20 08/17/20 18:59 06:59 18:59 Intake Total 508.246 618.976 148.270 Output Total 174 310 30 Balance 334.246 308.976 118.270 Weight 117.1 kg Intake: IV 605 55 Diltiazem 125 mg In 55 5 Sodium Chloride 0.9% 100 ml @ 5 MG/HR 5 mls/hr IV .Q24H [facility] Rx#:[id number] Sodium Chloride 0.9% 1, 550 50 000 ml @ 50 mls/hr IV . Q20H [facility] Rx#:[id number] Intake, IV Titration 508.246 13.976 93.270 Amount Dexmedetomidine/0.9% NaCl 13.976 (Pmx) 400 mcg In Empty Bag 1 bag @ Titrate IV . Q0M [facility] Rx#:[id number] Diltiazem 125 mg In 123.833 90.667 Sodium Chloride 0.9% 100 ml @ 5 MG/HR 5 mls/hr IV .Q24H [facility] Rx#:[id number] Heparin Sod,Pork in 0.45% 84.413 NaCl 25,000 unit In 0.45 % NaCl 1 250ml.bag @ 8.62 UNITS/KG/HR 9.97 mls/hr IV .Q24H [facility] Rx#: [id number] Norepinephrine 4 mg In 2.603 Sodium Chloride 0.9% 250 ml @ 0.05 MCG/KG/MIN 22. 308 mls/hr IV .[id number] [facility] Rx#:[id number] Sodium Chloride 0.9% 1, 200 000 ml @ 50 mls/hr IV . Q20H [facility] Rx#:[id number] Tocilizumab 800 mg In 100 Sodium Chloride 0.9% 60 ml @ 100 mls/hr IV ONCE ONE Rx#:[id number] Output: Urine 174 310 30 Other: Voiding Method Indwelling Catheter Indwelling Catheter - Exam Physical Exam: Revealed a 79-year-old white male in moderate severe respiratory distress, required intubation and mechanical ventilation shortly after I evaluated the patient in the ICU. On BiPAP before intubation Head: Atraumatic normocephalic. HEENT:[Neck is supple.] [No neck masses.] [No thyromegaly.] [No JVD.] Evidence of right carotid endarterectomy scar noted. Chest: [Symmetrical chest expansion, crackles and rhonchi noted bilaterally. Cardiac Exam: [Normal S1 and S2, no S3 gallop, 2/6 systolic murmur thought the precordium. Abdomen: [Obese, Soft, nontender, no megaly, no rebound, no guarding, normal bowel sounds.] Extremities: [No clubbing, no edema, no cyanosis.] Neurological Exam: Alert and oriented 3 focal neurologic deficit. Psychiatric: Anxious mood, blunt affect, normal mental status examination. Skin: No rashes. Lymphatics: No adenopathy. - Labs CBC & Chem 7: 08/17/20 04:45 08/17/20 04:49 Labs: Abnormal Lab Results - Last 24 Hours (Table) 08/15/20 08/16/20 08/16/20 Range/Units 22:16 11:11 12:02 WBC (3.8-10.6) k/uL Plt Count (150-450) k/uL Neutrophils # 17.8 H (1.3-7.7) k/uL Lymphocytes # 0.3 L (1.0-4.8) k/uL APTT (22.0-30.0) sec D-Dimer (<0.60) mg/L FEU ABG pH (7.35-7.45) ABG pCO2 (35-45) mmHg ABG pO2 (83-108) mmHg ABG HCO3 (21-25) mmol/L ABG O2 Saturation (94-97) % Sodium (137-145) mmol/L Carbon Dioxide (22-30) mmol/L BUN (9-20) mg/dL Glucose (74-99) mg/dL POC Glucose (mg/dL) (75-99) mg/dL Plasma Lactic Acid Darwin 3.7 H* (0.7-2.0) mmol/L Calcium (8.4-10.2) mg/dL Magnesium (1.6-2.3) mg/dL Lactate Dehydrogenase (313-618) U/L Creatine Kinase (55-170) U/L C-Reactive Protein (<1.0) mg/dL Procalcitonin 0.47 H (0.02-0.09) ng/mL 08/16/20 08/16/20 08/16/20 Range/Units 12:35 14:43 16:04 WBC (3.8-10.6) k/uL Plt Count (150-450) k/uL Neutrophils # (1.3-7.7) k/uL Lymphocytes # (1.0-4.8) k/uL APTT 34.6 H (22.0-30.0) sec D-Dimer (<0.60) mg/L FEU ABG pH (7.35-7.45) ABG pCO2 (35-45) mmHg ABG pO2 58 L* (83-108) mmHg ABG HCO3 (21-25) mmol/L ABG O2 Saturation 72.7 L (94-97) % Sodium (137-145) mmol/L Carbon Dioxide (22-30) mmol/L BUN (9-20) mg/dL Glucose (74-99) mg/dL POC Glucose (mg/dL) 187 H (75-99) mg/dL Plasma Lactic Acid Darwin (0.7-2.0) mmol/L Calcium (8.4-10.2) mg/dL Magnesium (1.6-2.3) mg/dL Lactate Dehydrogenase (313-618) U/L Creatine Kinase (55-170) U/L C-Reactive Protein (<1.0) mg/dL Procalcitonin (0.02-0.09) ng/mL 08/16/20 08/16/20 08/16/20 Range/Units 16:11 16:11 16:52 WBC (3.8-10.6) k/uL Plt Count (150-450) k/uL Neutrophils # (1.3-7.7) k/uL Lymphocytes # (1.0-4.8) k/uL APTT (22.0-30.0) sec D-Dimer (<0.60) mg/L FEU ABG pH (7.35-7.45) ABG pCO2 34 L (35-45) mmHg ABG pO2 59 L* (83-108) mmHg ABG HCO3 (21-25) mmol/L ABG O2 Saturation 89.9 L (94-97) % Sodium (137-145) mmol/L Carbon Dioxide (22-30) mmol/L BUN (9-20) mg/dL Glucose (74-99) mg/dL POC Glucose (mg/dL) (75-99) mg/dL Plasma Lactic Acid Darwin 3.2 H* (0.7-2.0) mmol/L Calcium (8.4-10.2) mg/dL Magnesium 2.6 H (1.6-2.3) mg/dL Lactate Dehydrogenase (313-618) U/L Creatine Kinase (55-170) U/L C-Reactive Protein (<1.0) mg/dL Procalcitonin (0.02-0.09) ng/mL 08/16/20 08/17/20 08/17/20 Range/Units 20:21 04:45 04:45 WBC 14.4 H (3.8-10.6) k/uL Plt Count 147 L (150-450) k/uL Neutrophils # (1.3-7.7) k/uL Lymphocytes # (1.0-4.8) k/uL APTT (22.0-30.0) sec D-Dimer 6.26 H (<0.60) mg/L FEU ABG pH (7.35-7.45) ABG pCO2 (35-45) mmHg ABG pO2 (83-108) mmHg ABG HCO3 (21-25) mmol/L ABG O2 Saturation (94-97) % Sodium (137-145) mmol/L Carbon Dioxide (22-30) mmol/L BUN (9-20) mg/dL Glucose (74-99) mg/dL POC Glucose (mg/dL) 193 H (75-99) mg/dL Plasma Lactic Acid Darwin (0.7-2.0) mmol/L Calcium (8.4-10.2) mg/dL Magnesium (1.6-2.3) mg/dL Lactate Dehydrogenase (313-618) U/L Creatine Kinase (55-170) U/L C-Reactive Protein (<1.0) mg/dL Procalcitonin (0.02-0.09) ng/mL 08/17/20 08/17/20 08/17/20 Range/Units 04:49 10:17 11:57 WBC (3.8-10.6) k/uL Plt Count (150-450) k/uL Neutrophils # (1.3-7.7) k/uL Lymphocytes # (1.0-4.8) k/uL APTT (22.0-30.0) sec D-Dimer (<0.60) mg/L FEU ABG pH 7.19 L* (7.35-7.45) ABG pCO2 51 H (35-45) mmHg ABG pO2 41 L* (83-108) mmHg ABG HCO3 20 L (21-25) mmol/L ABG O2 Saturation 62.5 L (94-97) % Sodium 130 L (137-145) mmol/L Carbon Dioxide 20 L (22-30) mmol/L BUN 34 H (9-20) mg/dL Glucose 180 H (74-99) mg/dL POC Glucose (mg/dL) 174 H (75-99) mg/dL Plasma Lactic Acid Darwin (0.7-2.0) mmol/L Calcium 7.6 L (8.4-10.2) mg/dL Magnesium 2.7 H (1.6-2.3) mg/dL Lactate Dehydrogenase 2214 H (313-618) U/L Creatine Kinase 482 H (55-170) U/L C-Reactive Protein 33.5 H (<1.0) mg/dL Procalcitonin (0.02-0.09) ng/mL Microbiology - Last 24 Hours (Table) 08/15/20 21:55 Blood Culture - Preliminary Blood No Growth after 24 hours 08/15/20 22:10 Blood Culture - Preliminary Blood No Growth after 24 hours 08/16/20 16:13 Urine Culture - Preliminary Urine,Catheterized Assessment and Plan Assessment: Impression: Acute hypoxic respiratory failure second to COVID-19 pneumonia requiring intubation and mechanical ventilation on 08/17/2020. Hypotension secondary to sepsis, septic shock, and possibly some component of hypovolemia. Elevated inflammatory markers secondary to above. Paroxysmal atrial fibrillation. GERD without esophagitis. Degenerative joint disease. History of obstructive sleep apnea syndrome. Ex-smoker. Recommendation: Continue ventilatory support. Including high FiO2, high PEEP, patient was placed on a pressure control mode of mechanical ventilation. Continue hemodynamic support using fluids and norepinephrine. Nutritional support, enteral feeding. Patient was out of the window for REM. Continue sedation while on mechanical ventilation and requiring high PEEP. Continue the COVID-19 cocktail. Emergent central line access and arterial line access were done because of his hypotension and worsening respiratory status. Patient was placed on Nimbex since he was hypoxic in spite of high FiO2 and high PEEP. Continue propofol and fentanyl. Overall prognosis is extremely poor and guarded. Critical care time is over 30 minutes not including the time spent on procedures Time with Patient: Greater than 30
[2020-08-17 12:53] VITALS: BMI 40.4
[2020-08-17 13:38] LABS: ABG Base Excess -10.1 mmol/L; ABG HCO3 21 mmol/L (21-25); ABG Oxygen Saturation 63.1 % (94-97); ABG TCO2 23 mmol/L (19-24)
[2020-08-17 13:39] LABS: ABG PCO2 76 mmHg (35-45); ABG PH 7.04 (7.35-7.45)
[2020-08-17 13:40] LABS: ABG PO2 46 mmHg (83-108)
[2020-08-17 14:01] LABS: Band Neutrophils % 14 %; Lymphocytes # (M) 0.29 k/uL (1.0-4.8); Monocytes # (M) 0.29 k/uL (0-1.0); Neutrophils % (M) 82 %; Nucleated Red Blood Cells 0 /100 WBC (0-0); Total Cells Counted 100
[2020-08-17 14:02] LABS: Anisocytosis (M) Present; Poikilocytosis (M) Present
[2020-08-17 14:03] LABS: Toxic Granulation Present; Toxic Vacuolation Present
[2020-08-17] MEDS: DEXTROSE 5% IN WATER 1,000 ML with SODIUM BICARB (1 MEQ/ML) 150 ML IV SCH (15:14)
--- NOTE | 2020-08-17 15:21 | US ---
EXAMINATION TYPE: US venous doppler duplex LE BI DATE OF EXAM: 08/17/2020 3:02 PM COMPARISON: NONE CLINICAL HISTORY: 79-year-old male leg swelling, rule out DVT SIDE PERFORMED: Bilateral TECHNIQUE: The lower extremity deep venous system is examined utilizing real time linear array sonog pat with graded compression, doppler sonography and color-flow sonography. FINDINGS: VESSELS IMAGED: Common Femoral Vein Deep Femoral Vein Greater Saphenous Vein * Femoral Vein Popliteal Vein-not evaluated Small Saphenous Vein *not evaluated Proximal Calf Veins-not seen (* superficial vessels) Journalist Notes: ICU patient on a vent, in slight reverse Trendelenburg position, unable to sit up, unable to move, extensive interstitial edema. Severely limited exam. Right Leg: Unable to visualize femoral vein mid and distal for compression views, unable to visualize popliteal vein or proximal calf veins due to patient position, appears negative for DVT in a limited capacity. Left Leg: Unable to visualize femoral vein mid and distal for compression views, unable to visualize popliteal vein or proximal calf veins due to patient position, appears negative for DVT in a limited capacity. IMPRESSION: Severely limited exam. Unable to adequately visualize the radial or upper calf veins. Limited minor corky views of the mid and lower femoral veins. No DVT visualized from the groin into the thigh. Again , very limited assessment.
--- NOTE | 2020-08-17 16:09 | PN ---
PROGRESS NOTE DATE OF SERVICE: 08/17/2020 INTERVAL HISTORY: This is a 79-year-old gentleman who was admitted with shortness of breath and acute COVID-19 bilateral pneumonia, as well as acute hypoxic respiratory was on BiPAP initially. Patient also had atrial fibrillation. Subsequently because of increased shortness of breath, the patient was mechanically ventilated and intubated this morning. The most recent chest x-ray which was reviewed personally by me showed extensive bilateral pneumonia, left more than the right at this time. D-dimer was elevated 6.26 and there was no evidence of any pulmonary embolism noted. PAST MEDICAL HISTORY: Reviewed. REVIEW OF SYSTEMS: Could not be taken. The patient was mechanically ventilated, sedated and intubated. CURRENT MEDICATIONS: Reviewed include Tylenol, Ventolin, Eliquis, Tenormin, Lipitor, Peridex, vitamin D3, vitamin B12, Decadron, multivitamins. Doses reviewed. PHYSICAL EXAM: GENERAL: Patient is on mechanical ventilation. VITAL SIGNS: Pulse 67, blood pressure 105/52, respirations 30, temperature normal, pulse ox 80% on 100% FIO2 with PEEP of 18. HEENT: Conjunctivae normal. NECK: No jugular venous distention. No carotid bruits. No lymph node enlargement. RESPIRATORY: Breath sounds diminished at the bases. A few scattered rhonchi. HEART: S1 and S2, muffled. ABDOMEN: Soft, obese, no tenderness. NERVOUS: The patient is sedated. LABS: WBC 14.4. D-dimer 6.26 and ABGs noted, sodium is 130. ASSESSMENT: 1. Acute COVID-19 bilateral interstitial pneumonia, left more than the right with acute hypoxic respiratory failure on mechanical ventilation. 2. Atrial fibrillation with a fast ventricular rate, present on admission. 3. Hyponatremia. 4. Hypokalemia. 5. Elevated random glucose. 6. Elevated lactic acid. 7. Hypocalcemia. 8. Hypomagnesemia. 9. Troponin 0.9, undetermined etiology. 10.Elevated inflammatory markers of COVID-19. 11.Elevated D-dimer without any evidence of acute pulmonary embolism. 12.Increased WBC. 13.Gastroesophageal reflux disease. 14.Hyperlipidemia. 15.History of degenerative joint disease. 16.History of prostate disorder. 17.History of sleep apnea. 18.History of syncope. 19.History of cardiac catheterization. 20.History of degenerative joint disease. 21.Remote history of nicotine dependence. 22.Obesity with body mass index of 39.9. 23.FULL CODE. RECOMMENDATIONS AND DISCUSSION: Recommend to continue current management and continue symptomatic treatment. Continue with mechanical ventilation. Closely follow with Dr. Schaeffer. Continue with bronchodilators. Continue with mechanical ventilation. Continue with the dexamethasone. Monitor blood sugars closely. Tocilizumab. Continue with zinc and rest of medications. Prognosis guarded because of multiple complex medical conditions. Further recommendations to follow. MMODL / IJN: [id number] /
--- NOTE | 2020-08-17 16:50 | PN ---
PROGRESS NOTE DATE OF SERVICE: 08/17/2020 REASON FOR FOLLOWUP: COVID-19 pneumonia. INTERVAL HISTORY: Patient did go into respiratory distress this morning and ended up getting intubated. The patient is currently on max dose of pressor support and is 100% FiO2, still saturating around 80%. No significant purulent secretions through the ET or diarrhea reported by the nursing staff. PHYSICAL EXAMINATION: On examination blood pressure is 105/52 with a pulse of 57. Temperature is 98.7. He is 80% on 100% FiO2. General description is an elderly male intubated on the vent. Respiratory system: Unlabored breathing, decreased intensity of breath sounds, no wheeze. Heart S1, S2. Regular rate and rhythm. Abdomen is soft, no tenderness. LABORATORY DATA: Hemoglobin 16.4, white count 14.4. BUN of 34, creatinine 0.95. DIAGNOSTIC IMPRESSION/PLAN: Patient with acute respiratory failure secondary to COVID-19 pneumonia. Patient has received a dose of Actemra. Vancomycin and is currently on Eliquis, dexamethasone, zinc and ascorbic acid. Overall prognosis remains to be guarded and monitor clinical course closely. MMODL / IJN: [id number] /
[2020-08-17 17:18] LABS: Glucose,Whole Blood 160 mg/dL (75-99)
[2020-08-17 19:04] VITALS: BP 117/42
--- NOTE | 2020-08-17 19:18 | XR ---
EXAMINATION TYPE: XR chest 1V portable DATE OF EXAM: 08/17/2020 CLINICAL HISTORY: Severe Hypoxia. TECHNIQUE: Portable semiupright view of the chest obtained COMPARISON: 08/17/2020 at 11:07 AM chest radiograph FINDINGS: Endotracheal tube distal tip approximately 3.5 cm from the victor hugo. Enteric tube with nonvis ualization of the distal tip, however the side port is again above the level of the GE junction. Righ t subclavian central venous catheter distal tip over the right atrium. Cardiac mediastinal silhouette unchanged. Multifocal diffuse airspace opacities bilaterally unchanged. No pleural effusion or pneum othorax. IMPRESSION: No significant interval change versus 11:07 AM comparison.
[2020-08-17] MEDS ORDERED: FUROSEMIDE 10 MG/ML 2 ML VIAL IV ONE (19:29)
[2020-08-17 20:07] LABS: ABG Base Excess -14.3 mmol/L; ABG HCO3 18 mmol/L (21-25); ABG Oxygen Saturation 60.1 % (94-97); ABG TCO2 21 mmol/L (19-24); Allen Test Performed? Yes
[2020-08-17 20:09] LABS: ABG PCO2 87 mmHg (35-45); ABG PH 6.93 (7.35-7.45); ABG PO2 40 mmHg (83-108)
[2020-08-17] MEDS ORDERED: SODIUM BICARB 8.4% 50 ML SYR (1 MEQ/ML) IV STA (20:23)
[2020-08-17] MEDS ORDERED: PANTOPRAZOLE 40 MG/10 ML VIAL IVP SCH (21:00)
[2020-08-17 21:37] VITALS: RESP 40
[2020-08-17] MEDS: ATORVASTATIN 40 MG TAB PO SCH (22:21)
[2020-08-17] MEDS ORDERED: SODIUM CHLORIDE 0.9% 150 ML with VASOPRESSIN 60 UNIT IV SCH ×2 (22:30)
[2020-08-18] MEDS ORDERED: INSULIN ASPART (NovoLOG) 100 UNIT/ML VIAL SQ SCH
[2020-08-18 00:14] LABS: Glucose,Whole Blood 116 mg/dL (75-99)
[2020-08-18 00:23] VITALS: PULSE 94; TEMP 95.2
--- NOTE | 2020-08-18 00:33 | P.EN ---
Code blue note, please refer to paper chart for exact sequence of events patient had a PEA cardiopulmonary arrest, CPR initiated following ACLS protocol . patient achieved ROSC after one round of CPR. ABG shows severe mixed acidosis respiratory and metabolic he is currently maxed out on two pressors on bicarb drip he was given 2 amps of bicarb check new set of labs BMP continue supportive care in the [facility] family notified, goals of care will be discussed
[2020-08-18] MEDS: DEXTROSE 5% IN WATER 1,000 ML with SODIUM BICARB (1 MEQ/ML) 150 ML IV SCH (03:26)
--- NOTE | 2020-08-19 06:22 | DS ---
DISCHARGE SUMMARY PRELIMINARY CAUSE OF : Acute COVID-19 bilateral interstitial pneumonia, left more than right, with acute hypoxic respiratory failure, on mechanical ventilation. OTHER DIAGNOSES: 1. Atrial fibrillation with fast ventricular rate, present on admission. 2. Hyponatremia. 3. Hypokalemia. 4. Elevated random glucose. 5. Elevated lactic acid. 6. Hypocalcemia. 7. Hypomagnesemia. 8. Troponin 0.9 undetermined etiology. 9. Elevated inflammatory markers of COVID-19. 10.Elevated D-dimer without any evidence of acute pulmonary embolism. 11.Increased WBC. 12.Gastroesophageal reflux disease. 13.Hyperlipidemia. 14.History of degenerative joint disease. 15.History of prostate disorder. 16.History of sleep apnea. 17.History of syncope. 18.History of cardiac catheterization. 19.Remote history of nicotine dependence. 20.Obesity with body mass index of 39.9. 21.FULL CODE. HISTORY OF PRESENT ILLNESS: This 79-year-old gentleman with a past medical history of multiple medical problems was admitted with acute COVID-19 pneumonia with acute interstitial bilateral pneumonia. Initial BiPAP was initiated but however the patient became desaturated and transferred to the ICU. The patient was started on multiple medications. Mechanical ventilation continued. Despite aggressive treatment, the patient's condition deteriorated. The patient succumbed to the above mentioned illnesses. The patient's prognosis was extremely guarded throughout the hospital stay. Please refer to the multiple consultations and progress notes from infectious Disease and Pulmonary, Dr. Schaeffer and Dr. Almodovar, for further information. MMODL / IJN: [id number] /
--- NOTE | 2020-08-20 15:48 | CDI ---
Documentation Clarification Form Mortality Review Date: 08/20/2020 03:24:07 PM From: Joann Fernando RN, CCDS Admit Date: 08/16/2020 12:13:00 AM Patient Name: Guilherme Mittal Visit Number: [id number] Discharge Date: 08/18/2020 03:47:00 AM ATTENTION: The Clinical Documentation Specialists (CDI) and [facility] Coding Staff appreciate your assistance in clarifying documentation. Please respond to the clarification below the line at the bottom and electronically sign. The CDI & [facility] Coding staff will review the response and follow-up if needed. Please note: Queries are made part of the Legal Health Record. If you have any questions, please contact the author of this message via ITS. Dr. Jalen Quinones The patient has Sepsis documented by Consults, but not confirmed by PCP. Please review and provide clinical significance of this diagnosis and if you agree and if it was POA. History/Risk Factors: GERD, HLD, MICHAEL, Covid 19 08/13, PAF, Obesity Clinical Indicators: 08/16 ID Consult: "Patient admitted to the hospital with sepsis." 08/17 Pulmonary Progress Note: "Hypotension secondary to sepsis, septic shock, and possibly some component of hypovolemia." 08/16 H&P: "Acute COVID-19 bilateral interstitial pneumonia with acute hypoxic respiratory failure on BiPAP." 08/15-08/17 WBC: 12.1/18.9/14.4 Neutrophils: 11/17.8/13.8 08/15-08/16 Lactic acid: 6.3/2.7/2.2/2.5/3.7/3.2 08/15 Blood cultures negative x 2 08/16 urine CX negative 08/17 Sputum CX positive Staph aureus 08/15 2138 Admission Vital signs: Temp 97.9, HR 138, RR 25, B/P 114/79, SPO2 74% on room air Documented infection: Covid 19 pneumonia Treatment: 08/16 ID Consult: Patient admitted to the hospital with sepsis. This patient did have fever, elevated white count, tachypnea and toxemia, source is acute severe COVID-19 infection." 08/16 Tocilizumab 800mg IVPB x 1 08/17 IVF Bolus 2L 0.9%NS In your professional opinion, please clarify if these findings signify one of the following conditions: [ ] Sepsis POA [ ] Sepsis, Not POA [ ] Severe Sepsis with organ failure [ ] Septic Shock [ ] Other, please specify [ ] Unable to determine SIRS Criteria: 2 or more of the following may indicate SIRS -Temperature < 96.8F (36C) or > 101.0F (38.3C) -Heart Rate > 90 bpm -Respiratory Rate > 20 breaths/min or PaCO2 < 32 mmHg -White Blood Cell Count > 12,000 or < 4,000 cells/mm3 or > 10% bands (Template Last Reviewed: May 2020) Sepsis POA MTDD
== END 2020-08-18 03:47 | disposition expired | DRG 871 ==
LOC: EC 21:37 → 3SCARD 08-16 00:13 → 2SICU 08-16 12:51
PROVIDERS: ADMIT Internal Medicine; ATTEND Internal Medicine
PROC: 5A09457 Assistance with Respiratory Ventilation, 24-96 Consecutive Hours, Continuous Positive Airway Pressure (ICD-10-PCS; 2020-08-15)
PROC: XW033H5 Introduction of Tocilizumab into Peripheral Vein, Percutaneous Approach, New Technology Group 5 (ICD-10-PCS; 2020-08-16)
PROC: 5A1935Z Respiratory Ventilation, Less than 24 Consecutive Hours (ICD-10-PCS; principal; 2020-08-17)
PROC: 0D9670Z Drainage of Stomach with Drainage Device, Via Natural or Artificial Opening (ICD-10-PCS; principal; 2020-08-17)
PROC: 0BH17EZ Insertion of Endotracheal Airway into Trachea, Via Natural or Artificial Opening (ICD-10-PCS; principal; 2020-08-17)
PROC: 3E033XZ Introduction of Vasopressor into Peripheral Vein, Percutaneous Approach (ICD-10-PCS; 2020-08-17)
PROC: 02H633Z Insertion of Infusion Device into Right Atrium, Percutaneous Approach (ICD-10-PCS; 2020-08-17)
PROC: 03HY32Z Insertion of Monitoring Device into Upper Artery, Percutaneous Approach (ICD-10-PCS; 2020-08-17)
PROC: 4A133J1 Monitoring of Arterial Pulse, Peripheral, Percutaneous Approach (ICD-10-PCS; 2020-08-17)
PROC: 4A133B1 Monitoring of Arterial Pressure, Peripheral, Percutaneous Approach (ICD-10-PCS; 2020-08-17)
PROC: 5A12012 Performance of Cardiac Output, Single, Manual (ICD-10-PCS; 2020-08-17)
DX: A41.89 Other specified sepsis (principal); U07.1 COVID-19; J12.82 Pneumonia due to coronavirus disease 2019; J80 Acute respiratory distress syndrome; R65.21 Severe sepsis with septic shock; E87.4 Mixed disorder of acid-base balance; E87.1 Hypo-osmolality and hyponatremia; Z68.41 Body mass index [BMI] 40.0-44.9, adult; I46.9 Cardiac arrest, cause unspecified; I48.0 Paroxysmal atrial fibrillation; I70.0 Atherosclerosis of aorta; Z66 Do not resuscitate; E83.51 Hypocalcemia; I11.9 Hypertensive heart disease without heart failure; E87.6 Hypokalemia; D72.810 Lymphocytopenia; R73.9 Hyperglycemia, unspecified; E83.42 Hypomagnesemia; R21 Rash and other nonspecific skin eruption; G47.33 Obstructive sleep apnea (adult) (pediatric); N40.0 Benign prostatic hyperplasia without lower urinary tract symptoms; E66.9 Obesity, unspecified; K21.9 Gastro-esophageal reflux disease without esophagitis; E78.5 Hyperlipidemia, unspecified; I25.10 Atherosclerotic heart disease of native coronary artery without angina pectoris; M19.90 Unspecified osteoarthritis, unspecified site; Z79.82 Long term (current) use of aspirin; Z79.899 Other long term (current) drug therapy; Z87.891 Personal history of nicotine dependence; Z85.828 Personal history of other malignant neoplasm of skin; Z96.653 Presence of artificial knee joint, bilateral; Z96.641 Presence of right artificial hip joint; Z98.42 Cataract extraction status, left eye; Z98.41 Cataract extraction status, right eye; Z87.19 Personal history of other diseases of the digestive system; Z87.39 Personal history of other diseases of the musculoskeletal system and connective tissue; Z95.828 Presence of other vascular implants and grafts; Z86.79 Personal history of other diseases of the circulatory system; Z71.3 Dietary counseling and surveillance; Z98.890 Other specified postprocedural states; Z80.1 Family history of malignant neoplasm of trachea, bronchus and lung; Z80.0 Family history of malignant neoplasm of digestive organs
CPT/HCPCS: 36415; 36600; 71045; 71275; 80048; 80053; 82550; 82728; 82805; 83605; 83615; 83735; 83880; 84145; 84443; 84484; 85025; 85379; 85610; 85730; 86140; 87040; 87070; 87077; 87086; 87186; 87205; 93005; 93306; 93970; 94002; 94640; 94660; 96374; 96375; 99285